=== PATIENT | female | born 1935 | race Caucasian/White ===

== ENCOUNTER 2018-04-15 08:36 | Inpatient (IN) ==
--- NOTE | 2018-04-15 08:48 | Emergency Department Note ---
Disposition Clinical Impression: Atrial fibrillation with RVR, Generalized weakness Disposition: Admitted As Inpatient Condition: Good Referrals: Mikie Arana MD [Primary Care Provider] - Forms: ED Satisfaction Letter Weakness HPI - General Chief complaint: ED Weakness Stated complaint: Trouble walking Time Seen by Provider: 04/15/18 08:42 Source: patient, family, EMS Mode of arrival: EMS Limitations: physical limitation, age Nursing Notes Reviewed: Yes Vital Signs Reviewed: Yes - History of Present Illness HPI Narrative: Patient presents by EMS with complaint of generalized weakness and trouble walking. She states this has onset over the course of a year and that she can no longer do as much work at her house and yard his usual. 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 Because of this 911 was called and she has been brought in for evaluation. Patient states that she feels well. She has not had any type of fall or injury and denies any new pain or physical complaint. She states she has had some chronic intermittent constipation and is still waiting for a referral for evaluation of that. She denies any chest pain, palpitation or shortness of breath. She denies any urinary difficulty but she was treated for urinary tract infection about a month ago. She states she currently has "no trouble" with her urine. She denies fevers or chills. She denies abdominal pain or diarrhea. She denies any cough or congestion. She notes that "they take my vitals every morning" and that "my vitals are good". She denies any change in her medicines. Patient currently is living in her own residence. Pt Subjective Complaint: generalized weakness/fatigue, difficulty ambulating - Related Data Home Medications Medication Instructions Recorded Confirmed Aspirin 81 mg PO DAILY 06/26/15 04/15/18 Multivitamin [Zoo Chews] 1 tab PO DAILY 06/26/15 04/15/18 Potassium Chloride [Klor-Con 10] 20 meq PO DAILY 01/31/17 04/15/18 Cholecalciferol (Vitamin D3) 600 unit PO QAM 10/12/17 04/15/18 [Vitamin D] Donepezil [Aricept] 5 mg PO HS 10/12/17 04/15/18 Rivaroxaban [Xarelto] 20 mg PO DAILY 10/12/17 04/15/18 Ondansetron [Zofran] 4 mg PO Q6HR 03/12/18 04/15/18 ALPRAZolam [Xanax 0.5 MG Tablet] 0.5 tab PO BID 04/15/18 04/15/18 Cran/Vitc/Mannose/Fos/Bromeln 5 ml PO DAILY 04/15/18 04/15/18 [Cystex Cranberry Liquid] Docusate [Colace] 100 mg PO DAILY 04/15/18 04/15/18 Omeprazole [PriLOSEC] 20 mg PO DAILY 04/15/18 04/15/18 Previous Rx's Medication Instructions Recorded Diltiazem CD (24hr) [Cardizem CD] 120 mg PO DAILY #30 cap.er.24h 06/14/17 Ascorbic Acid [Vitamin C] 500 mg PO DAILY #30 tablet.er 07/31/17 Cyanocobalamin (B-12) [Vitamin B12] 1,000 mcg PO DAILY #30 tablet 07/31/17 Ferrous Sulfate 325 mg PO DAILY #30 tablet 07/31/17 Allergies Allergy/AdvReac Type Severity Reaction Status Date / Time cephalexin [From Keflex] Allergy Hives Verified 04/15/18 08:38 ciprofloxacin [From Cipro] AdvReac Hives Verified 04/15/18 08:38 All systems ED: reviewed and negative except as stated. Past Medical History - Past Medical History Attestation: Yes The following information was validated with the patient. Source: patient, old records reviewed, obtained from family, nursing notes reviewed Medical history: Reports: atrial fibrillation, cancer, CVA, dementia, hypertension, kidney stones Surgical history: Reports: breast surgery, cancer surgery, colectomy, orthopedic , other, ureteral stent Psychiatric history: Reports: no psych history MARKETING PROFESSOR history: Reports: no MARKETING PROFESSOR history - Social History Smoking Status: Former smoker Smokeless Tobacco Status: No Alcohol use: Reports: none Drug use: Reports: none Physical Exam - General Limitations: no limitations General appearance: alert, in no apparent distress - Head Head exam: atraumatic, normocephalic, normal inspection - Eye Eye exam: Present: normal appearance, PERRL, EOMI, other (Slight mattering of the left eyelids.) - ENT ENT exam: normal exam, normal oropharynx, mucous membranes moist - Neck Neck exam: Present: normal inspection, full ROM, trachea midline. Absent: tenderness, lymphadenopathy - Chest Chest inspection: Present: normal inspection, symmetric chest wall rise - Respiratory Respiratory exam: Present: normal lung sounds bilaterally. Absent: respiratory distress, wheezes, prolonged expiratory phase - Cardiovascular Cardiovascular exam: Present: tachycardia, irregular rhythm. Absent: JVD - Abdominal Exam Abdominal exam: Present: soft, Non-Tender, normal bowel sounds. Absent: tenderness, distention, guarding, rebound, rigidity - Extremities Exam Extremities exam: Present: normal inspection, full ROM, normal capillary refill. Absent: tenderness, pedal edema - Expanded Lower Extremity Exam Neurovascular/Tendon exam: Present: normal capillary refill. Absent: motor deficit, sensory deficit, tendon deficit Gait: not tested/not observed - Neurological Exam Neurological exam: Present: alert, oriented X3 - Psychiatric Psychiatric exam: Present: normal affect, normal mood. Absent: agitated, anxious - Skin Skin exam: Present: warm, dry, intact, normal color. Absent: diaphoresis, pallor Course Course Narrative: With return of all labs, imaging and EKG, care has been discussed with Dr. Sotelo at 10:47 AM. 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 This likely is secondary to her age fibrillation with RVR. The duration of this rhythm is unclear. Dr. Sotelo has given verbal orders for her observation period patient is currently improved with a heart rate of 84 and a blood pressure of 93/51. Vital Signs Temperature 98.6 F 04/15/18 08:47 Pulse Rate 82 04/15/18 08:47 Respiratory Rate 18 04/15/18 08:47 Blood Pressure 109/80 04/15/18 08:47 O2 Sat by Pulse Oximetry 93 04/15/18 08:47 Temperature 98.6 F 04/15/18 08:47 Pulse Rate 96 04/15/18 10:05 Respiratory Rate 20 04/15/18 10:05 Blood Pressure 101/59 04/15/18 10:05 O2 Sat by Pulse Oximetry 93 04/15/18 10:05 Oxygen Delivery Oxygen Delivery Room Air Weakness - Differential Diagnosis Differential Diagnosis: Likely: anemia, sepsis/infection, dehydration, medication effect, metabolic - Medical Records Medical records reviewed: Yes I reviewed the patient's medical records. - Lab Data Lab results reviewed: Yes I reviewed the patient's lab results. Result diagrams: 04/15/18 09:00 04/15/18 09:00 Lab Results 04/15/18 04/15/18 04/15/18 Range/Units 09:00 09:00 09:00 WBC 17.5 H (4.3-11.1) K/mcL RBC 4.77 (3.82-4.97) M/mcL Hgb 13.9 (11.5-15.4) g/dL Hct 42.3 (35.3-44.9) % MCV 88.7 (83.0-100.0) fL MCH 29.1 (28.0-33.3) pg MCHC 32.9 (31.6-35.5) g/dL RDW 15.1 H (11.5-14.5) % Plt Count 246 (140-400) K/mcL MPV 12.8 H (9.4-12.4) fL Immature Gran % 0.3 (0-4) % Seg Neutrophils % 80.6 % Lymphocytes % 7.3 % Monocytes % 11.3 % Eosinophils % 0.1 % Basophils % 0.4 % Neutrophils # 14.1 H (1.6-8.9) K/mcL Lymphocytes # 1.3 (0.6-4.6) K/mcL Monocytes # 2.0 H (0.0-1.3) K/mcL Eosinophils # 0.0 (0.0-0.6) K/mcL Basophils # 0.1 (0.0-0.2) K/mcL PT (9.4-12.1) Seconds INR Sodium 139 (136-145) mEq/L Potassium 3.9 (3.5-5.1) mEq/L Chloride 106 (98-107) mEq/L Carbon Dioxide 24 (23-29) mEq/L BUN 9 (8-23) mg/dL Creatinine 0.55 L (0.60-1.20) mg/dL Est GFR ( Amer) > 60 (> 60) Est GFR (Non-Af Amer) > 60 (> 60) BUN/Creatinine Ratio 16 (6-26) Glucose 135 H (70-105) mg/dL Calculated Osmolality 289 (280-300) Calcium 9.0 (8.6-10.3) mg/dL Troponin I < 0.03 (< 0.04) ng/mL B-Natriuretic Peptide (Less than 100) pg/mL TSH 2.009 (0.340-5.600) mcIU/mL 04/15/18 04/15/18 Range/Units 09:00 09:00 WBC (4.3-11.1) K/mcL RBC (3.82-4.97) M/mcL Hgb (11.5-15.4) g/dL Hct (35.3-44.9) % MCV (83.0-100.0) fL MCH (28.0-33.3) pg MCHC (31.6-35.5) g/dL RDW (11.5-14.5) % Plt Count (140-400) K/mcL MPV (9.4-12.4) fL Immature Gran % (0-4) % Seg Neutrophils % % Lymphocytes % % Monocytes % % Eosinophils % % Basophils % % Neutrophils # (1.6-8.9) K/mcL Lymphocytes # (0.6-4.6) K/mcL Monocytes # (0.0-1.3) K/mcL Eosinophils # (0.0-0.6) K/mcL Basophils # (0.0-0.2) K/mcL PT 28.4 H (9.4-12.1) Seconds INR 2.5 Sodium (136-145) mEq/L Potassium (3.5-5.1) mEq/L Chloride (98-107) mEq/L Carbon Dioxide (23-29) mEq/L BUN (8-23) mg/dL Creatinine (0.60-1.20) mg/dL Est GFR ( Amer) (> 60) Est GFR (Non-Af Amer) (> 60) BUN/Creatinine Ratio (6-26) Glucose (70-105) mg/dL Calculated Osmolality (280-300) Calcium (8.6-10.3) mg/dL Troponin I (< 0.04) ng/mL B-Natriuretic Peptide 582 H (Less than 100) pg/mL TSH (0.340-5.600) mcIU/mL - Radiology Data Radiology results reviewed: Yes I reviewed the patient's radiology results. Single view chest x-ray is performed. This does not demonstrate evidence for infiltrate, effusion, pneumothorax, foreign body or heart failure. Patient has chronic increased interstitial markings which do not appear significantly changed from previous. The cardiac silhouette is normal. I do not see abnormality to the osseous structures of the chest. This is on my interpretation. Impressions Chest X-Ray 04/15/18 09:24 IMPRESSION: Ground-glass opacification in the right lower lung zone suspected to represent atelectasis. Asymmetric edema or developing pneumonitis considered less likely. D/ / Brandon Knott MD / Brandon Knott MD Interpreting Provider: Brandon Knott MD - EKG Data EKG attestation: Yes I reviewed and interpreted this EKG. EKG shows normal: axis, intervals, QRS complexes, ST-T waves Rate: tachycardia (140) Rhythm: A.Fib Interpretation: no acute changes, nonspecific ST-T wave changes, other (Atrial fibrillation with RVR)
[2018-04-15 09:16] LABS: Basophils # 0.1 K/mcL (0.0-0.2); Basophils % 0.4 %; Eosinophils % 0.1 %; Hematocrit 42.3 % (35.3-44.9); Hemoglobin 13.9 g/dL (11.5-15.4); Immature Granulocytes % 0.3 % (0-4); Lymphocytes # 1.3 K/mcL (0.6-4.6); Lymphocytes % 7.3 %; Mean Corpuscular HGB Conc 32.9 g/dL (31.6-35.5); Mean Corpuscular Hemoglobin 29.1 pg (28.0-33.3); Mean Corpuscular Volume 88.7 fL (83.0-100.0); Mean Platelet Volume 12.8 fL (9.4-12.4); Monocytes % 11.3 %; Neutrophils # 14.1 K/mcL (1.6-8.9); Platelet Count 246 K/mcL (140-400); Red Blood Count 4.77 M/mcL (3.82-4.97); Red Cell Distribution Width 15.1 % (11.5-14.5); Segmented Neutrophils % 80.6 %
[2018-04-15 09:31] LABS: INR 2.5; Prothrombin Time 28.4 Seconds (9.4-12.1)
[2018-04-15 09:40] LABS: BUN/Creatinine Ratio 16 (6-26); Blood Urea Nitrogen 9 mg/dL (8-23); Carbon Dioxide 24 mEq/L (23-29); Chloride 106 mEq/L (98-107); Glucose 135 mg/dL (70-105); Osmolality,Calculated 289 (280-300); Potassium 3.9 mEq/L (3.5-5.1); Sodium 139 mEq/L (136-145); eGFR For African Americans > 60 (> 60); eGFR For Non-African Americans > 60 (> 60)
[2018-04-15 09:43] LABS: Troponin I < 0.03 ng/mL (< 0.04)
[2018-04-15 11:44] LABS: Bilirubin,Urine Negative (Negative); Blood,Urine Moderate (Negative); Clarity,Urine Slightly Cloudy (Clear); Color,Urine Dark Yellow (Yellow); Glucose,Urine (UA) Normal (Normal); Ketones,Urine Negative (Negative); Leukocyte Esterase,Urine Trace (Negative); Nitrite,Urine Positive (Negative); PH,Urine 5.5 pH Units (5.0-8.0); Protein,Urine 100 mg/dL (Neg-Trace); Specific Gravity,Urine 1.025 (1.010-1.025); Urobilinogen,Urine Normal (Normal)
[2018-04-15 11:57] LABS: Bacteria,Urine Many per hpf (None-Few); Granular Casts,Urine Few per lpf (None Seen); Hyaline Casts,Urine Few per lpf (None-Few); Mucus,Urine Few (Few); RBC,Urine 0-3 per hpf (0-3); Squamous Epithelial Cell,Urine Few per lpf (None-Few)
[2018-04-15] MEDS ORDERED: Naloxone 0.4 MG/ML INJ IVP PRN (12:01)
[2018-04-15] MEDS ORDERED: 0.9 % Sodium Chloride 1,000 ML IVC SCH (12:01)
[2018-04-15] MEDS: Ondansetron ODT 4 MG TAB.RAPDIS PO SCH ×2 (13:26→17:56)
--- NOTE | 2018-04-15 17:07 | Internal Med History&Physical ---
Date of Encounter: 04/15/18 Time of Encounter: 16:35 Assessment and Plan (1) Atrial fibrillation with RVR Current visit: Yes Status: Acute Rate now controlled after IV Cardizem given in emergency room. Continue oral Cardizem (2) Right kidney mass Current visit: Yes Status: Acute Will not workup further per patient request. (3) Neutrophilic leukocytosis Current visit: Yes Status: Acute Etiology not obvious. Will give empiric Bactrim and doxycycline with lactobacillus and monitor labs. (4) Dementia Current visit: No Status: Chronic B12 level was low July 2017. Will recheck in a.m. Qualifiers: Dementia type: vascular dementia Dementia behavioral disturbance: without behavioral disturbance Qualified Code(s): F01.50 - Vascular dementia without behavioral disturbance (5) Weakness Current visit: Yes Status: Acute Will order PT and OT evaluation. Internal Medicine - H&P: HPI Chief complaint: Weakness Admitted From: Emergency Dept Plans for Post Hospital Care: Home History of present illness: Ms. Resendez is a 83 year old female who came to emergency room after caregivers reported she had become noticeably weaker in the past 24 hours. She denies pain or dyspnea. She was evaluated in emergency room found to have AF with RVR with ventricular rate approximately 140/m. She was admitted to [facility] floor for ongoing care needs. She is a fair to poor historian because of dementia. Past Med Surg Social Fam HX - Past Medical History Medical history: atrial fibrillation, cancer, CVA, dementia, hypertension, kidney stones Additional medical history: hard of hearing. dysphagia. left hemiplegia. swelling left hand. hypoxia. hx of pneumonia. onychomycosis. afib with rvr Psychiatric history: no psych history - Past Surgical History Surgical History: breast surgery, cancer surgery, colectomy, orthopedic, other, ureteral stent Additional surgical history: Left masectomy. Left leg - Social History Smoking Status: Former smoker Smokeless Tobacco Status: No Alcohol use: none Drug use: none Internal Medicine - H&P: Meds Aspirin 81 mg PO DAILY 06/26/15 [History] Multivitamin [Zoo Chews] 1 tab PO DAILY 06/26/15 [History] Potassium Chloride [Klor-Con 10] 20 meq PO DAILY 01/31/17 [History] Diltiazem CD (24hr) [Cardizem CD] 120 mg PO DAILY #30 cap.er.24h 06/14/17 [Rx] Ascorbic Acid [Vitamin C] 500 mg PO DAILY #30 tablet.er 07/31/17 [Rx] Cyanocobalamin (B-12) [Vitamin B12] 1,000 mcg PO DAILY #30 tablet 07/31/17 [Rx] Ferrous Sulfate 325 mg PO DAILY #30 tablet 07/31/17 [Rx] Cholecalciferol (Vitamin D3) [Vitamin D] 600 unit PO QAM 10/12/17 [History] Donepezil [Aricept] 5 mg PO HS 10/12/17 [History] Rivaroxaban [Xarelto] 20 mg PO DAILY 10/12/17 [History] Ondansetron [Zofran] 4 mg PO Q6HR 03/12/18 [History] ALPRAZolam [Xanax 0.5 MG Tablet] 0.5 tab PO BID 04/15/18 [History] Cran/Vitc/Mannose/Fos/Bromeln [Cystex Cranberry Liquid] 5 ml PO DAILY 04/15/18 [ History] Docusate [Colace] 100 mg PO DAILY 04/15/18 [History] Omeprazole [PriLOSEC] 20 mg PO DAILY 04/15/18 [History] 3 Allergy/AdvReac Type Severity Reaction Status Date / Time cephalexin [From Keflex] Allergy Hives Verified 04/15/18 08:38 ciprofloxacin [From Cipro] AdvReac Hives Verified 04/15/18 08:38 All Systems PM: A 10-system review of systems was performed and is negative for pertinent findings except as documented above in the HPI. Review of systems: Review of systems from July 2017 [facility] hospitalization were reviewed and revised as below area Gen.: Her weight has decreased from approximately 130 pounds December 2013 to 111 pounds on admission now Cardiovascular: She has had previously documented paroxysmal atrial fibrillation and takes Xarelto. She has hypertension but no DE heart failure DVT or pulmonary embolus Respiratory: She smoked from age [age] but has no known chronic lung disease. GI: She had approximately 8-1/2 feet of small and large bowel resection with primary anastomosis many years ago. She has declined colonoscopy for follow-up of colon polyps. There is no known disorder of liver gallbladder or exocrine pancreas : She had CT scan to further evaluate hematuria December 2017. An 11 mm enhancing hypodense lesion was seen in the inferior pole of the right kidney suspicious for renal cell carcinoma. The patient refused further evaluation. No other kidney or bladder disorders are known. Neurologic: She has had multiple strokes with involvement of the right frontal , right parietal, and right cerebellum. She uses a walker at home. She has not had seizures. She has dementia. Endocrine: She has no known diabetes or thyroid disease but has history of dyslipidemia Hematology/oncology: She had left mastectomy in 1993 for breast CA which was apparently curative. She has a right kidney mass as per above with no further workup done due to patient refusal. Psychiatric: She has no known anxiety depression or other mental health issues Musk skeletal: She has history of osteoporosis but does not have significant arthritis or other bone joint or muscle disorders. - Constitutional Vitals: Temp Pulse Resp BP Pulse Ox 98.4 F 79 16 121/66 92 04/15/18 13:00 04/15/18 13:00 04/15/18 13:00 04/15/18 13:00 04/15/18 13:00 Exam: Gen.: She is a well-developed well-nourished female resting comfortably in bed who appears in no acute distress HEENT: Head is atraumatic and normocephalic. Eyes: EOMI. There is no scleral icterus. Mouth: Mucosa is moist. Neck: Supple and nontender. There is no thyromegaly or adenopathy noted. Heart: Irregularly irregular without murmurs or gallops Lungs: No wheezes or crackles are heard. Abdomen: Soft and nontender. No masses or guarding are noted. Extremities: There is no cyanosis edema or clubbing noted. Dorsalis pedis and posterior tibial pulses are trace palpable bilaterally. She has DJD changes of her hands. Neurologic: Mental status: She is talkative but a fair to poor historian. She is rambling in conversation. Cranial nerves: Smile is asymmetric with slight left nasolabial fold flattening. Forehead wrinkles bilaterally. Tongue protrudes midline. EOMI. She is hard of hearing. Motor: There is no pronator drift. Cerebellar: Finger to nose is intact bilaterally. Skin: Warm and dry Internal Med - H&P Results - Labs CBC & Chem 7: 04/15/18 09:00 04/15/18 09:00 Labs: Urine 07/05/18 Range/Units 11:25 Urine Color Dark Yellow (Yellow) Urine Clarity Slightly Cloudy A (Clear) Urine pH 5.5 (5.0-8.0) pH Units Ur Specific [place] 1.025 (1.010-1.025) Urine Protein 100 H (Neg-Trace) mg/dL Urine Glucose (UA) Normal (Normal) mg/dL - VTE Documentation of Mechanical Device: Graduated compression elastic hosiery
[2018-04-15] MEDS: Doxycycline 100 MG CAPSULE PO SCH (21:20)
[2018-04-15] MEDS: Lactobacillus 1 EACH CAP.SPRINK PO SCH (21:20)
[2018-04-15] MEDS: Sulfamethoxazole/Trimeth DS 1 EACH TABLET PO SCH (21:20)
[2018-04-15] MEDS: ALPRAZolam 0.25 MG TABLET PO SCH (21:25)
[2018-04-15] MEDS ORDERED: *HR* Digoxin 0.5 MG/2 ML AMPUL IVP ONE (21:43)
[2018-04-16] MEDS: Ondansetron ODT 4 MG TAB.RAPDIS PO SCH ×5 (00:13→23:27)
[2018-04-16 05:29] LABS: Basophils % 0.3 %; Eosinophils # 0.1 K/mcL (0.0-0.6); Eosinophils % 0.8 %; Hematocrit 40.3 % (35.3-44.9); Hemoglobin 12.9 g/dL (11.5-15.4); Immature Granulocytes % 0.4 % (0-4); Lymphocytes # 1.9 K/mcL (0.6-4.6); Lymphocytes % 12.7 %; Mean Corpuscular Hemoglobin 28.6 pg (28.0-33.3); Mean Corpuscular Volume 89.4 fL (83.0-100.0); Mean Platelet Volume 13.1 fL (9.4-12.4); Monocytes # 1.8 K/mcL (0.0-1.3); Monocytes % 12.2 %; Platelet Count 237 K/mcL (140-400); Red Blood Count 4.51 M/mcL (3.82-4.97); Red Cell Distribution Width 15.1 % (11.5-14.5); Segmented Neutrophils % 73.6 %
[2018-04-16] MEDS: Lactobacillus 1 EACH CAP.SPRINK PO SCH ×2 (08:59→20:48)
[2018-04-16] MEDS: ALPRAZolam 0.25 MG TABLET PO SCH ×2 (08:59→20:53)
[2018-04-16] MEDS: Aspirin 81 MG TAB.CHEW PO SCH (08:59)
[2018-04-16] MEDS: Diltiazem CD (24hr) 120 MG CAPSULE PO SCH (08:59)
[2018-04-16] MEDS: Sulfamethoxazole/Trimeth DS 1 EACH TABLET PO SCH ×2 (09:00→20:52)
[2018-04-16] MEDS: Doxycycline 100 MG CAPSULE PO SCH ×2 (09:00→20:51)
[2018-04-16 09:23] LABS: Ferritin 85 ng/mL (10-120); Iron < 10 mcg/dL (50-170); Transferrin 197 mg/dL (203-362)
--- NOTE | 2018-04-16 09:47 | Internal Med Progress Note ---
Date of Encounter: 04/16/18 Time of Encounter: 09:35 - Assessment and plan (1) Atrial fibrillation with RVR Current Visit: Yes Status: Acute Assessment and plan: April 16. Will give Lanoxin in addition to Cardizem to control ventricular rate. Continue Xarelto. (2) Right kidney mass Current Visit: Yes Status: Acute Assessment and plan: April 16. Will not workup further per patient request. (3) Neutrophilic leukocytosis Current Visit: Yes Status: Acute Assessment and plan: April 16. Etiology not obvious, improved on labs today. Continue Bactrim and doxycycline with lactobacillus. (4) Dementia Current Visit: No Status: Chronic Assessment and plan: april 16. B12 level normal at 333. Qualifiers: Dementia type: vascular dementia Dementia behavioral disturbance: without behavioral disturbance Qualified Code(s): F01.50 - Vascular dementia without behavioral disturbance (5) Weakness Current Visit: Yes Status: Acute Assessment and plan: April 16. PT and OT evaluations have been ordered. (6) Iron deficiency Current Visit: Yes Status: Acute Assessment and plan: April 16. Start ferrous sulfate with vitamin C in a.m. - Subjective Interval history: April 16. She has no new complaints. - Constitutional Vitals: Temp Pulse Resp BP Pulse Ox 99.2 F 103 16 112/64 93 04/16/18 07:17 04/16/18 07:17 04/16/18 07:17 04/16/18 07:17 04/16/18 07:17 Exam: She is resting comfortably in bed and appears in no acute distress. Her affect is overall cheerful. She does not appear to be in significant pain. I reviewed her medications. I discussed pertinent labs with her and her home caregiver at bedside. Internal Medicine: Result - Labs CBC & Chem 7: 04/16/18 04:48 04/15/18 09:00 Labs: Short CBC 04/16/18 Range/Units 04:48 WBC 14.9 H (4.3-11.1) K/mcL Hgb 12.9 (11.5-15.4) g/dL Hct 40.3 (35.3-44.9) % Plt Count 237 (140-400) K/mcL Neutrophils # 11.0 H (1.6-8.9) K/mcL Urine 04/15/18 Range/Units 11:25 Urine Color Dark Yellow (Yellow) Urine Clarity Slightly Cloudy A (Clear) Urine pH 5.5 (5.0-8.0) pH Units Ur Specific [place] 1.025 (1.010-1.025) Urine Protein 100 H (Neg-Trace) mg/dL Urine Glucose (UA) Normal (Normal) mg/dL - ABG Interpretation ABG results: PT/INR, D-dimer PT 28.4 Seconds (9.4-12.1) H 04/15/18 09:00 - VTE Documentation of Mechanical Device: Graduated compression elastic hosiery Consult Discharge Plan - Plan Referrals: Mikie Arana MD [Primary Care Provider] - 1 week
--- NOTE | 2018-04-16 10:05 | Electrocardiograph Report ---
[address] [place], [place] [address] Test Date: 2018-04-15 Pat Name: Felisha Resendez Department: [id number] Room: [facility] Gender: F Entertainment Usher: [id number] : 1935 Requested By: Marcelino Howard Order Number: [id number] Reading MD: Rodolfo Malone Measurements Intervals [place] Rate: 140 P: ME: 0 QRS: 17 QRSD: 74 T: 34 QT: 259 QTc: 341 Interpretive Statements ATRIAL FIBRILLATION WITH RAPID VENTRICULAR RESPONSE NONSPECIFIC ST & T-WAVE ABNORMALITY ABNORMAL RHYTHM ECG Electronically Signed On 04-16-2018 10:03:42 EDT by Rodolfo Malone
[2018-04-16] MEDS: *HR* Digoxin 0.25 MG TABLET PO SCH (10:13)
[2018-04-16] MEDS: *HR* Rivaroxaban 10 MG TABLET PO SCH (18:23)
[2018-04-17] MEDS: Ascorbic Acid 500 MG TABLET PO SCH (05:34)
[2018-04-17] MEDS: Ondansetron ODT 4 MG TAB.RAPDIS PO SCH ×4 (05:49→23:40)
[2018-04-17] MEDS: Aspirin 81 MG TAB.CHEW PO SCH (09:34)
[2018-04-17] MEDS: ALPRAZolam 0.25 MG TABLET PO SCH ×2 (09:35→20:47)
[2018-04-17] MEDS: Sulfamethoxazole/Trimeth DS 1 EACH TABLET PO SCH ×2 (09:37→20:46)
[2018-04-17] MEDS: Diltiazem CD (24hr) 120 MG CAPSULE PO SCH (09:37)
[2018-04-17] MEDS: Doxycycline 100 MG CAPSULE PO SCH ×2 (09:37→20:46)
[2018-04-17] MEDS: Lactobacillus 1 EACH CAP.SPRINK PO SCH ×2 (09:38→20:46)
[2018-04-17] MEDS: *HR* Digoxin 0.25 MG TABLET PO SCH (09:40)
[2018-04-17] MEDS: *HR* Rivaroxaban 10 MG TABLET PO SCH (16:48)
--- NOTE | 2018-04-17 17:09 | Internal Med Progress Note ---
Date of Encounter: 04/17/18 Time of Encounter: 17:00 - Assessment and plan (1) Atrial fibrillation with RVR Current Visit: Yes Status: Acute Assessment and plan: April 16. Will give Lanoxin in addition to Cardizem to control ventricular rate. Continue Xarelto. April 17. Now in NSR. Continue Lanoxin, Cardizem, and Xarelto. (2) Right kidney mass Current Visit: Yes Status: Acute Assessment and plan: April 16. Will not workup further per patient request. (3) Neutrophilic leukocytosis Current Visit: Yes Status: Acute Assessment and plan: April 16. Etiology not obvious, improved on labs today. Continue Bactrim and doxycycline with lactobacillus. April 17. Recheck labs in a.m. (4) Dementia Current Visit: No Status: Chronic Assessment and plan: april 16. B12 level normal at 333. Qualifiers: Dementia type: vascular dementia Dementia behavioral disturbance: without behavioral disturbance Qualified Code(s): F01.50 - Vascular dementia without behavioral disturbance (5) Weakness Current Visit: Yes Status: Acute Assessment and plan: April 16. PT and OT evaluations have been ordered. (6) Iron deficiency Current Visit: Yes Status: Acute Assessment and plan: April 16. Start ferrous sulfate with vitamin C in a.m. (7) Dysphagia as late effect of cerebrovascular accident (CVA) Current Visit: No Status: Chronic Assessment and plan: April 17. Continue ST intervention. - Subjective Interval history: April 16. She has no new complaints. April 17. She has no new complaints. She states she is still coughing. - Constitutional Vitals: Temp Pulse Resp BP Pulse Ox 98.4 F 80 16 121/55 93 04/17/18 14:04/17/18 14:00 04/17/18 14:00 04/17/18 14:04/17/18 14:00 Exam: She is sitting up in bed eating supper. Her affect is bright and cheerful. She had occasional cough during conversation. Telemetry shows normal sinus rhythm 78/m. I reviewed her medications and lab results. Internal Medicine: Result - Labs CBC & Chem 7: 04/16/18 04:48 04/15/18 09:00 - ABG Interpretation ABG results: PT/INR, D-dimer PT 28.4 Seconds (9.4-12.1) H 04/15/18 09:00 - VTE Documentation of Mechanical Device: Graduated compression elastic hosiery Consult Discharge Plan - Plan Referrals: Mikie Arana MD [Primary Care Provider] - 1 week
[2018-04-18] MEDS: Ondansetron ODT 4 MG TAB.RAPDIS PO SCH ×3 (05:09→16:59)
[2018-04-18] MEDS: Ascorbic Acid 500 MG TABLET PO SCH (05:09)
[2018-04-18 06:31] LABS: Basophils # 0.1 K/mcL (0.0-0.2); Basophils % 0.7 %; Eosinophils # 0.2 K/mcL (0.0-0.6); Eosinophils % 2.3 %; Hematocrit 37.8 % (35.3-44.9); Hemoglobin 11.6 g/dL (11.5-15.4); Immature Granulocytes % 0.4 % (0-4); Lymphocytes # 1.4 K/mcL (0.6-4.6); Lymphocytes % 14.3 %; Mean Corpuscular HGB Conc 30.7 g/dL (31.6-35.5); Mean Corpuscular Hemoglobin 28.4 pg (28.0-33.3); Mean Corpuscular Volume 92.6 fL (83.0-100.0); Mean Platelet Volume 12.6 fL (9.4-12.4); Monocytes # 1.3 K/mcL (0.0-1.3); Monocytes % 13.3 %; Neutrophils # 6.9 K/mcL (1.6-8.9); Platelet Count 245 K/mcL (140-400); Red Blood Count 4.08 M/mcL (3.82-4.97); Red Cell Distribution Width 14.7 % (11.5-14.5)
[2018-04-18 06:52] LABS: BUN/Creatinine Ratio 17 (6-26); Blood Urea Nitrogen 10 mg/dL (8-23); Calcium 8.6 mg/dL (8.6-10.3); Carbon Dioxide 29 mEq/L (23-29); Chloride 102 mEq/L (98-107); Glucose 137 mg/dL (70-105); Osmolality,Calculated 287 (280-300); Potassium 4.1 mEq/L (3.5-5.1); Sodium 138 mEq/L (136-145); eGFR For African Americans > 60 (> 60); eGFR For Non-African Americans > 60 (> 60)
[2018-04-18] MEDS: Diltiazem CD (24hr) 120 MG CAPSULE PO SCH (09:05)
[2018-04-18] MEDS: Lactobacillus 1 EACH CAP.SPRINK PO SCH ×2 (09:06→20:34)
[2018-04-18] MEDS: Aspirin 81 MG TAB.CHEW PO SCH (09:10)
[2018-04-18] MEDS: *HR* Digoxin 0.25 MG TABLET PO SCH (09:11)
[2018-04-18] MEDS: Doxycycline 100 MG CAPSULE PO SCH ×2 (09:12→20:34)
[2018-04-18] MEDS: Sulfamethoxazole/Trimeth DS 1 EACH TABLET PO SCH ×2 (09:14→20:34)
[2018-04-18] MEDS: ALPRAZolam 0.25 MG TABLET PO SCH ×2 (09:17→20:35)
--- NOTE | 2018-04-18 10:04 | Internal Med Progress Note ---
Date of Encounter: 04/18/18 Time of Encounter: 09:55 - Assessment and plan (1) Atrial fibrillation with RVR Current Visit: Yes Status: Acute Assessment and plan: April 16. Will give Lanoxin in addition to Cardizem to control ventricular rate. Continue Xarelto. April 17. Now in NSR. Continue Lanoxin, Cardizem, and Xarelto. (2) Right kidney mass Current Visit: Yes Status: Acute Assessment and plan: April 16. Will not workup further per patient request. (3) Neutrophilic leukocytosis Current Visit: Yes Status: Acute Assessment and plan: April 16. Etiology not obvious, improved on labs today. Continue Bactrim and doxycycline with lactobacillus. April 17. Recheck labs in a.m. April 18. Resolved. We will continue antibiotic and probiotic through April 19. (4) Dementia Current Visit: No Status: Chronic Assessment and plan: april 16. B12 level normal at 333. Qualifiers: Dementia type: vascular dementia Dementia behavioral disturbance: without behavioral disturbance Qualified Code(s): F01.50 - Vascular dementia without behavioral disturbance (5) Weakness Current Visit: Yes Status: Acute Assessment and plan: April 16. PT and OT evaluations have been ordered. (6) Iron deficiency Current Visit: Yes Status: Acute Assessment and plan: April 16. Start ferrous sulfate with vitamin C in a.m. (7) Dysphagia as late effect of cerebrovascular accident (CVA) Current Visit: No Status: Chronic Assessment and plan: April 17. Continue ST intervention. - Subjective Interval history: April 16. She has no new complaints. April 17. She has no new complaints. She states she is still coughing. April 18. She has no new complaints - Constitutional Vitals: Temp Pulse Resp BP Pulse Ox 98.1 F 77 16 120/56 95 04/18/18 06:37 04/18/18 08:58 04/18/18 06:37 04/18/18 08:58 04/18/18 08:58 Exam: She is resting comfortably in bed and appears in no acute distress. Her affect is cheerful. Heart is regular with NSR 77/m on telemetry. I reviewed her medications and lab results. Internal Medicine: Result - Labs CBC & Chem 7: 04/18/18 05:55 04/18/18 05:55 Labs: Short CBC 04/18/18 Range/Units 05:55 WBC 10.0 (4.3-11.1) K/mcL Hgb 11.6 (11.5-15.4) g/dL Hct 37.8 (35.3-44.9) % Plt Count 245 (140-400) K/mcL Neutrophils # 6.9 (1.6-8.9) K/mcL BMP 04/18/18 05:55 Sodium 138 Potassium 4.1 Chloride 102 Carbon Dioxide 29 BUN 10 Creatinine 0.60 Glucose 137 H Calcium 8.6 - ABG Interpretation ABG results: PT/INR, D-dimer PT 28.4 Seconds (9.4-12.1) H 04/15/18 09:00 - VTE Documentation of Mechanical Device: Graduated compression elastic hosiery Consult Discharge Plan - Plan Referrals: Mikie Arana MD [Primary Care Provider] - 1 week
[2018-04-18] MEDS: *HR* Rivaroxaban 10 MG TABLET PO SCH (16:59)
[2018-04-19] MEDS: Ondansetron ODT 4 MG TAB.RAPDIS PO SCH ×4 (06:28→17:37)
[2018-04-19] MEDS: Ascorbic Acid 500 MG TABLET PO SCH (06:28)
[2018-04-19] MEDS: *HR* Digoxin 0.25 MG TABLET PO SCH (09:19)
[2018-04-19] MEDS: Aspirin 81 MG TAB.CHEW PO SCH (09:19)
[2018-04-19] MEDS: Doxycycline 100 MG CAPSULE PO SCH (09:20)
[2018-04-19] MEDS: Diltiazem CD (24hr) 120 MG CAPSULE PO SCH (09:20)
[2018-04-19] MEDS: Lactobacillus 1 EACH CAP.SPRINK PO SCH (09:21)
[2018-04-19] MEDS: Sulfamethoxazole/Trimeth DS 1 EACH TABLET PO SCH (09:23)
[2018-04-19] MEDS: ALPRAZolam 0.25 MG TABLET PO SCH ×2 (09:26→21:39)
--- NOTE | 2018-04-19 12:33 | Internal Med Progress Note ---
Date of Encounter: 04/19/18 Time of Encounter: 12:20 - Assessment and plan (1) Atrial fibrillation with RVR Current Visit: Yes Status: Acute Assessment and plan: April 16. Will give Lanoxin in addition to Cardizem to control ventricular rate. Continue Xarelto. April 17. Now in NSR. Continue Lanoxin, Cardizem, and Xarelto. April 19. Now in atrial fib again. Continue Lanoxin and Cardizem and Xarelto. (2) Right kidney mass Current Visit: Yes Status: Acute Assessment and plan: April 16. Will not workup further per patient request. (3) Neutrophilic leukocytosis Current Visit: Yes Status: Acute Assessment and plan: April 16. Etiology not obvious, improved on labs today. Continue Bactrim and doxycycline with lactobacillus. April 17. Recheck labs in a.m. April 18. Resolved. We will continue antibiotic and probiotic through April 19. April 19. We will discontinue antibiotics today. (4) Dementia Current Visit: No Status: Chronic Assessment and plan: april 16. B12 level normal at 333. Qualifiers: Dementia type: vascular dementia Dementia behavioral disturbance: without behavioral disturbance Qualified Code(s): F01.50 - Vascular dementia without behavioral disturbance (5) Weakness Current Visit: Yes Status: Acute Assessment and plan: April 16. PT and OT evaluations have been ordered. (6) Iron deficiency Current Visit: Yes Status: Acute Assessment and plan: April 16. Start ferrous sulfate with vitamin C in a.m. (7) Dysphagia as late effect of cerebrovascular accident (CVA) Current Visit: No Status: Chronic Assessment and plan: April 17. Continue ST intervention. - Subjective Interval history: April 16. She has no new complaints. April 17. She has no new complaints. She states she is still coughing. April 18. She has no new complaints April 19. She has no new complaints. She denies pain or dyspnea. - Constitutional Vitals: Temp Pulse Resp BP Pulse Ox 98.7 F 77 20 119/69 96 04/19/18 07:30 04/19/18 09:17 04/19/18 09:17 04/19/18 09:17 04/19/18 09:17 Exam: She is resting comfortably in bed and appears in no acute distress. Heart is irregularly irregular with rate 88/m. Lungs are clear anteriorly. Extremity show no edema. I reviewed her medications and lab results. Internal Medicine: Result - Labs CBC & Chem 7: 04/18/18 05:55 04/18/18 05:55 - ABG Interpretation ABG results: PT/INR, D-dimer PT 28.4 Seconds (9.4-12.1) H 04/15/18 09:00 - VTE Documentation of Mechanical Device: Graduated compression elastic hosiery Consult Discharge Plan - Plan Referrals: Mikie Arana MD [Primary Care Provider] - 1 week
[2018-04-19] MEDS: *HR* Rivaroxaban 10 MG TABLET PO SCH (17:37)
[2018-04-20] MEDS: Ondansetron ODT 4 MG TAB.RAPDIS PO SCH ×3 (01:08→11:42)
[2018-04-20 06:04] LABS: Basophils # 0.1 K/mcL (0.0-0.2); Basophils % 0.8 %; Eosinophils # 0.3 K/mcL (0.0-0.6); Hematocrit 41.7 % (35.3-44.9); Immature Granulocytes % 0.8 % (0-4); Lymphocytes # 1.7 K/mcL (0.6-4.6); Lymphocytes % 19.8 %; Mean Corpuscular HGB Conc 31.2 g/dL (31.6-35.5); Mean Corpuscular Hemoglobin 28.4 pg (28.0-33.3); Mean Corpuscular Volume 91.2 fL (83.0-100.0); Mean Platelet Volume 12.8 fL (9.4-12.4); Monocytes % 11.9 %; Neutrophils # 5.5 K/mcL (1.6-8.9); Platelet Count 290 K/mcL (140-400); Red Blood Count 4.57 M/mcL (3.82-4.97); Red Cell Distribution Width 14.4 % (11.5-14.5); Segmented Neutrophils % 63.7 %
[2018-04-20] MEDS: Ascorbic Acid 500 MG TABLET PO SCH (06:18)
[2018-04-20 06:35] LABS: BUN/Creatinine Ratio 23 (6-26); Blood Urea Nitrogen 12 mg/dL (8-23); Calcium 9.1 mg/dL (8.6-10.3); Carbon Dioxide 32 mEq/L (23-29); Chloride 101 mEq/L (98-107); Digoxin 1.3 ng/mL (0.8-2.0); Glucose 97 mg/dL (70-105); Osmolality,Calculated 288 (280-300); Potassium 4.3 mEq/L (3.5-5.1); Sodium 139 mEq/L (136-145); eGFR For African Americans > 60 (> 60); eGFR For Non-African Americans > 60 (> 60)
[2018-04-20 08:40] VITALS: BP 120/53
[2018-04-20] MEDS: Diltiazem CD (24hr) 120 MG CAPSULE PO SCH (08:41)
[2018-04-20] MEDS: *HR* Digoxin 0.25 MG TABLET PO SCH (08:42)
[2018-04-20] MEDS: ALPRAZolam 0.25 MG TABLET PO SCH (08:42)
[2018-04-20] MEDS: Aspirin 81 MG TAB.CHEW PO SCH (08:42)
--- NOTE | 2018-04-20 14:28 | Discharge Summary ---
Date of Encounter: 04/20/18 Time of Encounter: 14:18 - Discharge Diagnosis (1) Atrial fibrillation with RVR Priority: Primary Status: Acute (2) Right kidney mass Priority: Secondary Status: Chronic (3) Neutrophilic leukocytosis Priority: Secondary Status: Resolved (4) Dementia Priority: Secondary Status: Chronic Qualifiers: Dementia type: vascular dementia Dementia behavioral disturbance: without behavioral disturbance Qualified Code(s): F01.50 - Vascular dementia without behavioral disturbance (5) Weakness Priority: Secondary Status: Chronic (6) Iron deficiency Priority: Secondary Status: Acute (7) Dysphagia as late effect of cerebrovascular accident (CVA) Priority: Secondary Status: Chronic Hospital course: Ms. Resendez is a 83 year old female who came to emergency room after caregivers reported she had become noticeably weaker in the past 24 hours. She denies pain or dyspnea. She was evaluated in emergency room found to have AF with RVR with ventricular rate approximately 140/m. She was admitted to [facility] floor for ongoing care needs. Initial orders were written by the emergency room physician. I saw her on April 15 and performed the history and physical. She was given IV Cardizem in emergency room. Lanoxin was started and oral Cardizem continued as at home dose. She had intermittent episodes of atrial fibrillation through the remainder of her hospital stay but her rate remained overall controlled. She will continue this regimen in swing bed. She was given Bactrim and doxycycline with lactobacillus empirically for neutrophilic leukocytosis. Etiology was not determined with certainty. WBC and left shift on differential normalized and antibiotics were discontinued on April 19. Physical therapy and occupational therapy evaluations with ongoing intervention were done. She made some improvement but it was felt she would benefit from ongoing therapy in swing bed. Arrangements were complete on April 20 for her to be discharged to swing bed for ongoing care needs. - Time Spent with Patient Total time spent providing and/or coordinating discharge services: - Discharge Medications Home Medications: Aspirin 81 mg PO DAILY 06/26/15 [History] Potassium Chloride [Klor-Con 10] 20 meq PO DAILY 01/31/17 [History] Diltiazem CD (24hr) [Cardizem CD] 120 mg PO DAILY #30 cap.er.24h 06/14/17 [Rx] Ascorbic Acid [Vitamin C] 500 mg PO DAILY #30 tablet.er 07/31/17 [Rx] Cyanocobalamin (B-12) [Vitamin B12] 1,000 mcg PO DAILY #30 tablet 07/31/17 [Rx] Ferrous Sulfate 325 mg PO DAILY #30 tablet 07/31/17 [Rx] Cholecalciferol (Vitamin D3) [Vitamin D3] 600 unit PO QAM 10/12/17 [History] Donepezil [Aricept] 5 mg PO HS 10/12/17 [History] Rivaroxaban [Xarelto] 20 mg PO DAILY 10/12/17 [History] Ondansetron [Zofran] 4 mg PO Q6HR 03/12/18 [History] ALPRAZolam [Xanax 0.5 MG Tablet] 0.5 tab PO BID 04/15/18 [History] Cran/Vitc/Mannose/Fos/Bromeln [Cystex Cranberry Liquid] 5 ml PO DAILY 04/15/18 [ History] Docusate [Colace] 100 mg PO DAILY 04/15/18 [History] Omeprazole [PriLOSEC] 20 mg PO DAILY 04/15/18 [History] Ascorbic Acid [Vitamin C] 500 mg PO 0630 tablet 04/20/18 [Rx] Digoxin [Lanoxin] 0.25 mg PO DAILY tablet 04/20/18 [Rx] Ferrous Sulfate 325 mg PO 0630 tablet 04/20/18 [Rx] Multivitamin [Zoo Chews] 1 tab PO DAILY PRN #0 04/20/18 [Rx] Allergies/Adverse Reactions: 3 Allergy/AdvReac Type Severity Reaction Status Date / Time cephalexin [From Keflex] Allergy Hives Verified 04/15/18 08:38 ciprofloxacin [From Cipro] AdvReac Hives Verified 04/15/18 08:38 Date of admission: 04/16/18 12:36 Primary care physician: Mikie Arana MD - Constitutional Vitals: Temp Pulse Resp BP Pulse Ox 97.7 F 108 16 120/53 93 04/20/18 07:24 04/20/18 08:37 04/20/18 07:24 04/20/18 08:37 04/20/18 08:44 - Patient Status Disposition: Transfer Hospital Swing Bed Condition: Good - Discharge Instructions - Diet and Activity Activity: as per physical therapy Diet: advance to your usual diet - VTE Documentation of Mechanical Device: Graduated compression elastic hosiery
[2018-04-20] MEDS: *HR* Rivaroxaban 10 MG TABLET PO SCH (16:26)
== END 2018-04-20 17:16 | disposition other institution (70) | DRG 309 ==
LOC: INPPIK 08:36 → EMEROOPIK 08:36 → INPPIK 11:28
PROVIDERS: ADMIT Internal Medicine; ATTEND Internal Medicine

== ENCOUNTER 2018-04-20 17:34 | Inpatient (IN) ==
[2018-04-20] MEDS: ALPRAZolam 0.5 MG TABLET PO SCH (20:43)
[2018-04-20] MEDS: Ondansetron ODT 4 MG TAB.RAPDIS PO SCH (20:50)
[2018-04-21] MEDS: Ondansetron ODT 4 MG TAB.RAPDIS PO SCH ×4 (00:33→17:26)
[2018-04-21] MEDS: Ascorbic Acid 500 MG TABLET PO SCH (06:24)
[2018-04-21 06:48] LABS: Basophils # 0.1 K/mcL (0.0-0.2); Basophils % 1.2 %; Eosinophils # 0.2 K/mcL (0.0-0.6); Eosinophils % 2.5 %; Hematocrit 39.6 % (35.3-44.9); Hemoglobin 12.2 g/dL (11.5-15.4); Immature Granulocytes % 0.5 % (0-4); Lymphocytes # 1.5 K/mcL (0.6-4.6); Lymphocytes % 18.9 %; Mean Corpuscular HGB Conc 30.8 g/dL (31.6-35.5); Mean Corpuscular Hemoglobin 28.6 pg (28.0-33.3); Mean Corpuscular Volume 92.7 fL (83.0-100.0); Mean Platelet Volume 12.7 fL (9.4-12.4); Monocytes # 0.9 K/mcL (0.0-1.3); Monocytes % 11.5 %; Neutrophils # 5.1 K/mcL (1.6-8.9); Platelet Count 303 K/mcL (140-400); Red Blood Count 4.27 M/mcL (3.82-4.97); Red Cell Distribution Width 14.4 % (11.5-14.5); Segmented Neutrophils % 65.4 %
[2018-04-21 07:00] LABS: BUN/Creatinine Ratio 34 (6-26); Blood Urea Nitrogen 17 mg/dL (8-23); Calcium 9.1 mg/dL (8.6-10.3); Carbon Dioxide 35 mEq/L (23-29); Chloride 101 mEq/L (98-107); Glucose 102 mg/dL (70-105); Osmolality,Calculated 292 (280-300); Potassium 4.3 mEq/L (3.5-5.1); Sodium 140 mEq/L (136-145); eGFR For African Americans > 60 (> 60); eGFR For Non-African Americans > 60 (> 60)
[2018-04-21 07:03] LABS: Activated Partial Thrombo Time 35.6 Seconds (26.0-36.0); INR 1.7; Prothrombin Time 18.7 Seconds (9.4-12.1)
[2018-04-21] MEDS ORDERED: VITC PO SCH (09:00)
[2018-04-21] MEDS ORDERED: FOS PO SCH (09:00)
[2018-04-21] MEDS ORDERED: MANNOSE PO SCH (09:00)
[2018-04-21] MEDS ORDERED: [UNRECOGNIZED DRUG - OTHER] PO SCH (09:00)
[2018-04-21] MEDS ORDERED: BROMELN PO SCH (09:00)
[2018-04-21] MEDS ORDERED: CRAN PO SCH (09:00)
[2018-04-21] MEDS ORDERED: ASCORBIC ACID 500 MG PO SCH (09:00)
[2018-04-21] MEDS: Diltiazem CD (24hr) 120 MG CAPSULE PO SCH (09:13)
[2018-04-21] MEDS: Multivit/Ca/Min/Fe/FA 1 TAB TABLET PO SCH (09:13)
[2018-04-21] MEDS: ALPRAZolam 0.5 MG TABLET PO SCH ×2 (09:14→22:20)
[2018-04-21] MEDS: *HR* Digoxin 0.25 MG TABLET PO SCH (09:14)
[2018-04-21] MEDS: Cholecalciferol (D-3) 1,000 UNIT TABLET PO SCH (09:14)
[2018-04-21] MEDS: Aspirin 81 MG TAB.CHEW PO SCH (09:14)
[2018-04-21] MEDS: Cyanocobalamin (B-12) 1,000 MCG TABLET PO SCH (09:14)
[2018-04-21] MEDS: *HR* Rivaroxaban 10 MG TABLET PO SCH (17:26)
[2018-04-22] MEDS: Ondansetron ODT 4 MG TAB.RAPDIS PO SCH ×4 (02:13→18:51)
[2018-04-22] MEDS: Ascorbic Acid 500 MG TABLET PO SCH (06:55)
[2018-04-22] MEDS: Cyanocobalamin (B-12) 1,000 MCG TABLET PO SCH (08:39)
[2018-04-22] MEDS: Aspirin 81 MG TAB.CHEW PO SCH (08:39)
[2018-04-22] MEDS: ALPRAZolam 0.5 MG TABLET PO SCH ×2 (08:39→21:20)
[2018-04-22] MEDS: Multivit/Ca/Min/Fe/FA 1 TAB TABLET PO SCH (08:39)
[2018-04-22] MEDS: Cholecalciferol (D-3) 1,000 UNIT TABLET PO SCH (08:39)
[2018-04-22] MEDS: *HR* Digoxin 0.25 MG TABLET PO SCH (08:40)
[2018-04-22] MEDS: Diltiazem CD (24hr) 120 MG CAPSULE PO SCH (08:40)
--- NOTE | 2018-04-22 14:45 | Internal Med Progress Note ---
Date of Encounter: 04/22/18 Time of Encounter: 14:30 - Assessment and plan (1) Weakness Current Visit: No Status: Chronic Assessment and plan: April 22. Continue therapy intervention. (2) Dementia Current Visit: No Status: Chronic Assessment and plan: April 22. Workup negative for reversible causes. Qualifiers: Dementia type: vascular dementia Dementia behavioral disturbance: without behavioral disturbance Qualified Code(s): F01.50 - Vascular dementia without behavioral disturbance (3) Right kidney mass Current Visit: No Status: Chronic Assessment and plan: April 22. She has declined further intervention or treatment. (4) Iron deficiency Current Visit: No Status: Acute Assessment and plan: April 22. Continue ferrous sulfate with vitamin C. - Subjective Interval history: April 22. She was hospitalized in acute-care April 15- after presenting with weakness. She had AF with RVR which responded to diltiazem. Satisfactory ventricular response rate was maintained on home dose of oral diltiazem. Neutrophilic leukocytosis responded to Bactrim and doxycycline without etiology of origin determined. She progressed satisfactorily with PT and OT but it was felt she would benefit from swing bed stay for ongoing therapy. She has no new complaints today and feels better. - Constitutional Vitals: Temp Pulse Resp BP Pulse Ox 97.7 F 67 16 127/72 98 04/22/18 07:15 04/22/18 07:15 04/22/18 07:15 04/22/18 07:15 04/22/18 07:15 Exam: She is resting comfortably in bed and appears in no acute distress. Her affect is bright and cheerful. She is hard of hearing. Heart is regular with occasional ectopic beat. Lungs are clear anteriorly. I reviewed her medications and lab results. Internal Medicine: Result - Labs CBC & Chem 7: 04/21/18 06:00 04/21/18 06:00 - ABG Interpretation ABG results: PT/INR, D-dimer PT 18.7 Seconds (9.4-12.1) H 04/21/18 06:00 - VTE Documentation of Mechanical Device: Graduated compression elastic hosiery Consult Discharge Plan - Plan Referrals: Mikie Arana MD [Primary Care Provider] - 1 week
[2018-04-22] MEDS: *HR* Rivaroxaban 10 MG TABLET PO SCH (18:51)
[2018-04-23] MEDS: Ondansetron ODT 4 MG TAB.RAPDIS PO SCH ×4 (02:23→18:41)
[2018-04-23] MEDS: Ascorbic Acid 500 MG TABLET PO SCH (06:58)
[2018-04-23] MEDS: Diltiazem CD (24hr) 120 MG CAPSULE PO SCH (10:28)
[2018-04-23] MEDS: Multivit/Ca/Min/Fe/FA 1 TAB TABLET PO SCH (10:28)
[2018-04-23] MEDS: Cholecalciferol (D-3) 1,000 UNIT TABLET PO SCH (10:28)
[2018-04-23] MEDS: *HR* Digoxin 0.25 MG TABLET PO SCH (10:28)
[2018-04-23] MEDS: Aspirin 81 MG TAB.CHEW PO SCH (10:29)
[2018-04-23] MEDS: Cyanocobalamin (B-12) 1,000 MCG TABLET PO SCH (10:29)
[2018-04-23] MEDS: ALPRAZolam 0.5 MG TABLET PO SCH ×2 (10:29→20:18)
[2018-04-23] MEDS: *HR* Rivaroxaban 10 MG TABLET PO SCH (18:41)
[2018-04-24] MEDS: Ondansetron ODT 4 MG TAB.RAPDIS PO SCH ×4 (00:34→16:48)
[2018-04-24] MEDS: Ascorbic Acid 500 MG TABLET PO SCH (06:32)
[2018-04-24] MEDS: Cyanocobalamin (B-12) 1,000 MCG TABLET PO SCH ×2 (09:47→16:44)
[2018-04-24] MEDS: Multivit/Ca/Min/Fe/FA 1 TAB TABLET PO SCH ×2 (09:47→16:46)
[2018-04-24] MEDS: *HR* Digoxin 0.25 MG TABLET PO SCH ×2 (09:47→16:45)
[2018-04-24] MEDS: Aspirin 81 MG TAB.CHEW PO SCH ×2 (09:47→16:44)
[2018-04-24] MEDS: Diltiazem CD (24hr) 120 MG CAPSULE PO SCH ×2 (09:47→16:44)
[2018-04-24] MEDS: Cholecalciferol (D-3) 1,000 UNIT TABLET PO SCH ×2 (09:48→16:44)
[2018-04-24] MEDS: ALPRAZolam 0.5 MG TABLET PO SCH ×3 (09:48→20:41)
[2018-04-24] MEDS: *HR* Rivaroxaban 10 MG TABLET PO SCH (16:48)
[2018-04-24] MEDS: dilTIAZem HCl 60 MG TABLET PO SCH (20:41)
[2018-04-25] MEDS: Ondansetron ODT 4 MG TAB.RAPDIS PO SCH ×4 (00:10→16:54)
[2018-04-25] MEDS: Ascorbic Acid 500 MG TABLET PO SCH (06:25)
[2018-04-25] MEDS: Ferrous Sulfate Oral Soln 300 MG/5 ML UDC PO SCH (06:26)
[2018-04-25] MEDS: Digoxin Oral Liquid 125 MCG/2.5 ML ORAL.SYG PO SCH (09:19)
[2018-04-25] MEDS: Docusate Oral Soln 100 MG/10 ML UDC PO SCH (09:19)
[2018-04-25] MEDS: Cyanocobalamin (B-12) 1,000 MCG TABLET PO SCH (09:20)
[2018-04-25] MEDS: dilTIAZem HCl 60 MG TABLET PO SCH ×2 (09:20→21:13)
[2018-04-25] MEDS: Aspirin 81 MG TAB.CHEW PO SCH ×2 (09:20→16:52)
[2018-04-25] MEDS: Cholecalciferol (D-3) 1,000 UNIT TABLET PO SCH (09:20)
[2018-04-25] MEDS: Potassium Chloride Elixir 20 MEQ/15 ML UDC PO SCH (09:20)
[2018-04-25] MEDS: Multivitamin Liquid 15 ML UDC PO SCH (09:20)
[2018-04-25] MEDS: ALPRAZolam 0.5 MG TABLET PO SCH ×2 (09:20→21:12)
--- NOTE | 2018-04-25 13:04 | Internal Med Progress Note ---
Date of Encounter: 04/25/18 Time of Encounter: 12:55 - Assessment and plan (1) Weakness Current Visit: No Status: Chronic Assessment and plan: April 22. Continue therapy intervention. April 25. Anticipate discharge home in a few days. (2) Dementia Current Visit: No Status: Chronic Assessment and plan: April 22. Workup negative for reversible causes. Qualifiers: Dementia type: vascular dementia Dementia behavioral disturbance: without behavioral disturbance Qualified Code(s): F01.50 - Vascular dementia without behavioral disturbance (3) Right kidney mass Current Visit: No Status: Chronic Assessment and plan: April 22. She has declined further intervention or treatment. (4) Iron deficiency Current Visit: No Status: Acute Assessment and plan: April 22. Continue ferrous sulfate with vitamin C. - Subjective Interval history: April 22. She was hospitalized in acute-care April 15- after presenting with weakness. She had AF with RVR which responded to diltiazem. Satisfactory ventricular response rate was maintained on home dose of oral diltiazem. Neutrophilic leukocytosis responded to Bactrim and doxycycline without etiology of origin determined. She progressed satisfactorily with PT and OT but it was felt she would benefit from swing bed stay for ongoing therapy. She has no new complaints today and feels better. April 25. She has no new complaints - Constitutional Vitals: Temp Pulse Resp BP Pulse Ox 98.0 F 58 14 119/60 96 04/25/18 06:57 04/25/18 06:57 04/25/18 06:57 04/25/18 06:57 04/25/18 06:57 Exam: She is sitting in a chair at bedside resting comfortably. She denies pain or dyspnea. Heart is irregularly irregular with rate 100/m. Lungs are clear. Her affect is very bright and cheerful. I reviewed her medications and lab results. Internal Medicine: Result - Labs CBC & Chem 7: 04/21/18 06:00 04/21/18 06:00 - ABG Interpretation ABG results: PT/INR, D-dimer PT 18.7 Seconds (9.4-12.1) H 04/21/18 06:00 - VTE Documentation of Mechanical Device: Graduated compression elastic hosiery Consult Discharge Plan - Plan Referrals: Mikie Arana MD [Primary Care Provider] - 1 week
[2018-04-25] MEDS: *HR* Rivaroxaban 10 MG TABLET PO SCH (16:54)
[2018-04-26] MEDS: Ondansetron ODT 4 MG TAB.RAPDIS PO SCH ×4 (01:09→17:32)
[2018-04-26] MEDS: Ferrous Sulfate Oral Soln 300 MG/5 ML UDC PO SCH (06:46)
[2018-04-26] MEDS: Ascorbic Acid 500 MG TABLET PO SCH (06:46)
[2018-04-26] MEDS: Docusate Oral Soln 100 MG/10 ML UDC PO SCH (09:21)
[2018-04-26] MEDS: Digoxin Oral Liquid 125 MCG/2.5 ML ORAL.SYG PO SCH (09:22)
[2018-04-26] MEDS: Potassium Chloride Elixir 20 MEQ/15 ML UDC PO SCH (09:22)
[2018-04-26] MEDS: Cholecalciferol (D-3) 1,000 UNIT TABLET PO SCH (09:23)
[2018-04-26] MEDS: ALPRAZolam 0.5 MG TABLET PO SCH ×2 (09:23→21:45)
[2018-04-26] MEDS: dilTIAZem HCl 60 MG TABLET PO SCH ×2 (09:23→21:45)
[2018-04-26] MEDS: Cyanocobalamin (B-12) 1,000 MCG TABLET PO SCH (09:23)
[2018-04-26] MEDS: Multivitamin Liquid 15 ML UDC PO SCH (09:23)
[2018-04-26] MEDS: *HR* Rivaroxaban 10 MG TABLET PO SCH (17:31)
[2018-04-27] MEDS: Ondansetron ODT 4 MG TAB.RAPDIS PO SCH ×4 (00:50→17:18)
[2018-04-27] MEDS: Ascorbic Acid 500 MG TABLET PO SCH (06:52)
[2018-04-27] MEDS: Ferrous Sulfate Oral Soln 300 MG/5 ML UDC PO SCH (06:52)
[2018-04-27] MEDS: Cyanocobalamin (B-12) 1,000 MCG TABLET PO SCH (08:26)
[2018-04-27] MEDS: dilTIAZem HCl 60 MG TABLET PO SCH ×2 (08:26→21:09)
[2018-04-27] MEDS: Potassium Chloride Elixir 20 MEQ/15 ML UDC PO SCH (08:26)
[2018-04-27] MEDS: Cholecalciferol (D-3) 1,000 UNIT TABLET PO SCH (08:26)
[2018-04-27] MEDS: ALPRAZolam 0.25 MG TABLET PO SCH ×2 (08:27→21:09)
[2018-04-27] MEDS: Docusate Oral Soln 100 MG/10 ML UDC PO SCH (13:03)
[2018-04-27] MEDS: *HR* Digoxin 0.25 MG TABLET PO SCH (13:03)
[2018-04-27] MEDS: Multivitamin Liquid 15 ML UDC PO SCH (13:03)
[2018-04-27] MEDS: Aspirin 81 MG TAB.CHEW PO SCH (13:04)
[2018-04-27] MEDS: Digoxin Oral Liquid 125 MCG/2.5 ML ORAL.SYG PO SCH (13:05)
[2018-04-27] MEDS: *HR* Rivaroxaban 10 MG TABLET PO SCH (17:18)
[2018-04-28] MEDS: Ondansetron ODT 4 MG TAB.RAPDIS PO SCH ×4 (01:15→17:52)
[2018-04-28] MEDS: Ferrous Sulfate Oral Soln 300 MG/5 ML UDC PO SCH (06:18)
[2018-04-28] MEDS: Ascorbic Acid 500 MG TABLET PO SCH (06:18)
[2018-04-28] MEDS: Multivitamin Liquid 15 ML UDC PO SCH (09:45)
[2018-04-28] MEDS: Docusate Oral Soln 100 MG/10 ML UDC PO SCH (09:45)
[2018-04-28] MEDS: Potassium Chloride Elixir 20 MEQ/15 ML UDC PO SCH (09:45)
[2018-04-28] MEDS: Cyanocobalamin (B-12) 1,000 MCG TABLET PO SCH (09:46)
[2018-04-28] MEDS: ALPRAZolam 0.25 MG TABLET PO SCH ×2 (09:46→21:31)
[2018-04-28] MEDS: Cholecalciferol (D-3) 1,000 UNIT TABLET PO SCH (09:46)
[2018-04-28] MEDS: dilTIAZem HCl 60 MG TABLET PO SCH ×2 (09:46→21:31)
[2018-04-28] MEDS: *HR* Digoxin 0.25 MG TABLET PO SCH (09:46)
--- NOTE | 2018-04-28 16:21 | Internal Med Progress Note ---
Date of Encounter: 04/28/18 Time of Encounter: 14:00 - Assessment and plan (1) Weakness Current Visit: No Status: Chronic Assessment and plan: April 22. Continue therapy intervention. April 25. Anticipate discharge home in a few days. April 28. Anticipate discharge home tomorrow. (2) Dementia Current Visit: No Status: Chronic Assessment and plan: April 22. Workup negative for reversible causes. Qualifiers: Dementia type: vascular dementia Dementia behavioral disturbance: without behavioral disturbance Qualified Code(s): F01.50 - Vascular dementia without behavioral disturbance (3) Right kidney mass Current Visit: No Status: Chronic Assessment and plan: April 22. She has declined further intervention or treatment. (4) Iron deficiency Current Visit: No Status: Acute Assessment and plan: April 22. Continue ferrous sulfate with vitamin C. - Subjective Interval history: April 22. She was hospitalized in acute-care April 15- after presenting with weakness. She had AF with RVR which responded to diltiazem. Satisfactory ventricular response rate was maintained on home dose of oral diltiazem. Neutrophilic leukocytosis responded to Bactrim and doxycycline without etiology of origin determined. She progressed satisfactorily with PT and OT but it was felt she would benefit from swing bed stay for ongoing therapy. She has no new complaints today and feels better. April 25. She has no new complaints April 28. She is sleeping. - Constitutional Vitals: Temp Pulse Resp BP Pulse Ox 98.1 F 64 14 125/65 95 04/28/18 06:41 04/28/18 06:41 04/28/18 06:41 04/28/18 06:41 04/28/18 06:41 Exam: She is resting comfortably in bed and appears in no acute distress. She ablated briefly in the hallway earlier today appeared in no acute distress. I reviewed her medications and lab results. Internal Medicine: Result - Labs CBC & Chem 7: 04/21/18 06:00 04/21/18 06:00 - ABG Interpretation ABG results: PT/INR, D-dimer PT 18.7 Seconds (9.4-12.1) H 04/21/18 06:00 - VTE Documentation of Mechanical Device: Graduated compression elastic hosiery Consult Discharge Plan - Plan Referrals: Mikie Arana MD [Primary Care Provider] - 1 week
[2018-04-28] MEDS: *HR* Rivaroxaban 10 MG TABLET PO SCH (17:51)
[2018-04-29] MEDS: Ondansetron ODT 4 MG TAB.RAPDIS PO SCH ×3 (00:36→11:07)
[2018-04-29] MEDS: Ascorbic Acid 500 MG TABLET PO SCH (05:33)
[2018-04-29] MEDS: Ferrous Sulfate Oral Soln 300 MG/5 ML UDC PO SCH (05:34)
[2018-04-29 06:47] VITALS: BP 141/60
[2018-04-29] MEDS ORDERED: Aspirin 81 MG TAB.CHEW PO SCH (09:00)
[2018-04-29] MEDS ORDERED: Digoxin Oral Liquid 125 MCG/2.5 ML ORAL.SYG PO SCH (09:00)
--- NOTE | 2018-04-29 10:57 | Discharge Summary ---
Date of Encounter: 04/29/18 Time of Encounter: 10:15 - Discharge Diagnosis (1) Weakness Priority: Primary Status: Chronic (2) Dementia Priority: Secondary Status: Chronic Qualifiers: Dementia type: vascular dementia Dementia behavioral disturbance: without behavioral disturbance Qualified Code(s): F01.50 - Vascular dementia without behavioral disturbance (3) Right kidney mass Priority: Secondary Status: Chronic (4) Iron deficiency Priority: Secondary Status: Acute Hospital course: Ms. Resendez is a 83 year old female was hospitalized in acute-care April 15 after presenting with weakness. She had AF with RVR which responded to diltiazem. Satisfactory ventricular response rate was maintained on home dose of oral diltiazem with addition of Lanoxin. Neutrophilic leukocytosis responded to Bactrim and doxycycline without etiology of origin determined. She progressed satisfactorily with PT and OT but it was felt she would benefit from swing bed stay for ongoing therapy. She continued with physical therapy and occupational therapy during swing bed stay. On April 29 she was stable for discharge home. She will have home health services ordered. She will follow with her PCP Dr. Arana within 1 week. Room air oximetry will be checked on 6 minute walk prior to discharge. - Time Spent with Patient Total time spent providing and/or coordinating discharge services: - Discharge Medications Prescriptions: Ascorbic Acid [Vitamin C] 500 mg PO 0630 #30 tablet Digoxin [Lanoxin] 0.25 mg PO DAILY #30 tablet Ferrous Sulfate 325 mg PO DAILY #30 tablet Home Medications: Potassium Chloride [Klor-Con 10] 20 meq PO DAILY 01/31/17 [History] Diltiazem CD (24hr) [Cardizem CD] 120 mg PO DAILY #30 cap.er.24h 06/14/17 [Rx] Ascorbic Acid [Vitamin C] 500 mg PO DAILY #30 tablet.er 07/31/17 [Rx] Cyanocobalamin (B-12) [Vitamin B12] 1,000 mcg PO DAILY #30 tablet 07/31/17 [Rx] Ferrous Sulfate 325 mg PO DAILY #30 tablet 07/31/17 [Rx] Cholecalciferol (Vitamin D3) [Vitamin D3] 600 unit PO QAM 10/12/17 [History] Donepezil [Aricept] 5 mg PO HS 10/12/17 [History] Rivaroxaban [Xarelto] 20 mg PO DAILY 10/12/17 [History] Ondansetron [Zofran] 4 mg PO Q6HR 03/12/18 [History] Cran/Vitc/Mannose/Fos/Bromeln [Cystex Cranberry Liquid] 5 ml PO DAILY 04/15/18 [ History] Docusate [Colace] 100 mg PO DAILY 04/15/18 [History] Multivitamin [Zoo Chews] 1 tab PO DAILY PRN #0 04/20/18 [Rx] ALPRAZolam [Xanax 0.5 MG Tablet] 0.25 tab PO BID 30 Days #30 04/29/18 [Rx] Ascorbic Acid [Vitamin C] 500 mg PO 0630 #30 tablet 04/29/18 [Rx] Aspirin 81 mg PO Q48H #0 04/29/18 [Rx] Digoxin [Lanoxin] 0.25 mg PO DAILY #30 tablet 04/29/18 [Rx] Ferrous Sulfate 325 mg PO DAILY #30 tablet 04/29/18 [Rx] Omeprazole [PriLOSEC] 20 mg PO DAILY PRN #0 04/29/18 [Rx] Allergies/Adverse Reactions: 3 Allergy/AdvReac Type Severity Reaction Status Date / Time cephalexin [From Keflex] Allergy Hives Verified 04/15/18 08:38 ciprofloxacin [From Cipro] AdvReac Hives Verified 04/15/18 08:38 Date of admission: 04/20/18 17:43 Primary care physician: Mikie Arana MD Consults: 04/20/18 17:56 Consult to Occupational Therapy [CONS] Routine Comment: Evaluate, Plan and Implement Plan of Care Reason for Consult: Evaluate, Plan and Implement Plan of Care Does patient have active BEDREST order?: No Is patient medically & hemodynamically stable?: Yes Patient assessed for mobility or mobilized this visit?: Yes Consult to Physical Therapy [CONS] Routine Comment: Evaluate, Plan and Implemet Plan of Care Reason for Consult: Evaluate, Plan and Implement Plan of Care Does patient have active BEDREST order?: No Is patient medically & hemodynamically stable?: Yes Patient assessed for mobility or mobilized this visit?: Yes Consult to Oncology Specialist [CONS] Routine Reason for SW Consult: Discharge Planning 04/27/18 10:59 Consult to Speech Therapy [CONS] Routine Comment: Evaluate, develop and implement POC Reason for Consult: Cognitive eval, status post CVAs Call Completed: No - Constitutional Vitals: Temp Pulse Resp BP Pulse Ox 97.8 F 63 12 141/60 90 04/29/18 06:40 04/29/18 06:40 04/29/18 06:40 04/29/18 06:40 04/29/18 06:40 - Patient Status Disposition: Home Health Service - Discharge Instructions Follow Up With: Mikie Arana MD [Primary Care Provider] - 1 week - Diet and Activity Activity: as per physical therapy Diet: advance to your usual diet - VTE Documentation of Mechanical Device: Graduated compression elastic hosiery
[2018-04-29] MEDS: Potassium Chloride Elixir 20 MEQ/15 ML UDC PO SCH (11:03)
[2018-04-29] MEDS: Multivitamin Liquid 15 ML UDC PO SCH (11:05)
[2018-04-29] MEDS: Cholecalciferol (D-3) 1,000 UNIT TABLET PO SCH (11:06)
[2018-04-29] MEDS: ALPRAZolam 0.25 MG TABLET PO SCH (11:06)
[2018-04-29] MEDS: Cyanocobalamin (B-12) 1,000 MCG TABLET PO SCH (11:06)
[2018-04-29] MEDS: dilTIAZem HCl 60 MG TABLET PO SCH (11:07)
[2018-04-29] MEDS: Docusate Oral Soln 100 MG/10 ML UDC PO SCH (11:26)
--- NOTE | 2018-04-29 12:18 | Physician Discharge Referral ---
Home Health/Hosp Referral Info Transfer to: Home Health Attending Provider: Deepak Provider in Charge Post Discharge: PCP (Yasmeen) - Diagnosis (1) Weakness Priority: Primary Status: Chronic (2) Dementia Priority: Secondary Status: Chronic (3) Right kidney mass Priority: Secondary Status: Chronic (4) Iron deficiency Priority: Secondary Status: Acute (5) Atrial fibrillation Priority: Secondary Status: Chronic - Respiratory Orders Smoking Cessation: Smoking cessation has been advised. For more information, call the [place] Tobacco Quit Line at 3-089-FENZ-NOW. - Diet/Nutrition Diet/Nutrition Orders: Mechanical Soft - Activity Activity Orders: Walker - Services Needed Following services are medically necessary services: Nursing, Home Health Aide, Physical Therapy, Occupational Therapy - Transfer Medications Prescriptions: Ascorbic Acid [Vitamin C] 500 mg PO 0630 #30 tablet Digoxin [Lanoxin] 0.25 mg PO DAILY #30 tablet Ferrous Sulfate 325 mg PO DAILY #30 tablet Home Medications: Potassium Chloride [Klor-Con 10] 20 meq PO DAILY 01/31/17 [History] Diltiazem CD (24hr) [Cardizem CD] 120 mg PO DAILY #30 cap.er.24h 06/14/17 [Rx] Ascorbic Acid [Vitamin C] 500 mg PO DAILY #30 tablet.er 07/31/17 [Rx] Cyanocobalamin (B-12) [Vitamin B12] 1,000 mcg PO DAILY #30 tablet 07/31/17 [Rx] Ferrous Sulfate 325 mg PO DAILY #30 tablet 07/31/17 [Rx] Cholecalciferol (Vitamin D3) [Vitamin D3] 600 unit PO QAM 10/12/17 [History] Donepezil [Aricept] 5 mg PO HS 10/12/17 [History] Rivaroxaban [Xarelto] 20 mg PO DAILY 10/12/17 [History] Ondansetron [Zofran] 4 mg PO Q6HR 03/12/18 [History] Cran/Vitc/Mannose/Fos/Bromeln [Cystex Cranberry Liquid] 5 ml PO DAILY 04/15/18 [ History] Docusate [Colace] 100 mg PO DAILY 04/15/18 [History] Multivitamin [Zoo Chews] 1 tab PO DAILY PRN #0 04/20/18 [Rx] ALPRAZolam [Xanax 0.5 MG Tablet] 0.25 tab PO BID 30 Days #30 04/29/18 [Rx] Ascorbic Acid [Vitamin C] 500 mg PO 0630 #30 tablet 04/29/18 [Rx] Aspirin 81 mg PO Q48H #0 04/29/18 [Rx] Digoxin [Lanoxin] 0.25 mg PO DAILY #30 tablet 04/29/18 [Rx] Ferrous Sulfate 325 mg PO DAILY #30 tablet 04/29/18 [Rx] Omeprazole [PriLOSEC] 20 mg PO DAILY PRN #0 04/29/18 [Rx] Allergies/Adverse Reactions: 3 Allergy/AdvReac Type Severity Reaction Status Date / Time cephalexin [From Keflex] Allergy Hives Verified 04/15/18 08:38 ciprofloxacin [From Cipro] AdvReac Hives Verified 04/15/18 08:38 Certification: Further, I certify that my clinical findings support that this patient is homebound (i.e. absences from home require considerable and taxing effort and are for medical reasons or temple services or infrequently or short duration when for other reasons) because: Homebound Reason: Leaving home requires considerable and taxing effort due to condition (Marked debility, kidney mass, dementia) Attestation: My signature below is to certify that this patient is under my care and that I, or nurse practitioner, or a physician's access services assistant working with me, has a face-to -face encounter with this patient.
== END 2018-04-29 13:09 | disposition home health service (06) | DRG 946 ==
LOC: INPPIK 17:43
PROVIDERS: ADMIT Internal Medicine; ATTEND Internal Medicine

== ENCOUNTER 2018-07-29 00:28 | Observation (INO) ==
--- NOTE | 2018-07-29 00:53 | Emergency Department Note ---
Disposition Clinical Impression: Lower gastrointestinal hemorrhage Disposition: Home, Self-Care Condition: Fair GI Bleed HPI - General Chief complaint: ED GI Bleed Stated complaint: rectal bleeding Time Seen by Provider: 07/29/18 00:28 Source: patient, EMS Mode of arrival: EMS Limitations: no limitations Nursing Notes Reviewed: Yes Vital Signs Reviewed: Yes - History of Present Illness HPI Narrative: Elderly female who lives at home alone with a nurse's aide patient apparently squad was dispatched for shortness of breath but upon arrival patient's complaint was rectal bleeding she says that she has a history of hemorrhoids but the patient has dementia and she only remembers things from moment to moment she does not have a long-term memory with conversation at this time. As any blurred vision double vision loss vision she denies any chest pain or chest pressure she denies any shortness of breath patient states though there was blood everywhere in the toilet at the house she denies fever chills joint aches rash lesions cough cold of flulike symptoms she does have generalized weakness she denies nu mbness tingling weakness recently gain weight loss anything that makes this better nothing makes it worse patient states pains 4-5 out of 10 Pt Subjective Complaint: gross bloody stools Onset (ago): unknown Consistency: constant Severity: moderate Improves with: nothing Worsens with: bowel movement Context: hemorrhoids (?) Associated symptoms: Reports: abdominal pain. Denies: nausea, vomiting, ep istaxis, fever, chills, headaches, loss of appetite, malaise, easy bruising, rash, other bleeding source, shortness of breath, syncope/near-syncope, weakness Treatments Prior to Arrival: none - Related Data Home Medications Medication Instructions Recorded Confirmed RX: Potassium Chloride [Klor-Con 20 meq PO DAILY 01/31/17 07/29/18 10] RX: Cholecalciferol (Vitamin D3) 600 unit PO QAM 10/12/17 07/29/18 [Vitamin D3] RX: Donepezil [Aricept] 5 mg PO HS 10/12/17 07/29/18 RX: Ondansetron [Zofran] 4 mg PO Q6HR 03/12/18 07/29/18 RX: Cran/Vitc/Mannose/Fos/Bromeln 5 ml PO DAILY 04/15/18 07/29/18 [Cystex Cranberry Liquid] RX: Docusate [Colace] 100 mg PO DAILY 04/15/18 07/29/18 Previous Rx's Medication Instructions Recorded RX: Diltiazem CD (24hr) [Cardizem 120 mg PO DAILY #30 cap.er.24h 06/14/17 CD] RX: Ascorbic Acid [Vitamin C] 500 mg PO DAILY #30 tablet.er 07/31/17 RX: Cyanocobalamin (B-12) [Vitamin 1,000 mcg PO DAILY #30 tablet 07/31/17 B12] RX: Ferrous Sulfate 325 mg PO DAILY #30 tablet 07/31/17 RX: Multivitamin [Zoo Chews] 1 tab PO DAILY PRN #0 04/20/18 RX: ALPRAZolam [Xanax 0.5 MG 0.25 tab PO BID 30 Days #30 04/29/18 Tablet] RX: Ascorbic Acid [Vitamin C] 500 mg PO 0630 #30 tablet 04/29/18 RX: Aspirin 81 mg PO Q48H #0 04/29/18 RX: Digoxin [Lanoxin] 0.25 mg PO DAILY #30 tablet 04/29/18 RX: Ferrous Sulfate 325 mg PO DAILY #30 tablet 04/29/18 RX: Omeprazole [PriLOSEC] 20 mg PO DAILY PRN #0 04/29/18 Apixaban [Eliquis] 5 mg PO BID #60 tablet 07/30/18 RX: Atorvastatin [Lipitor] 10 mg PO HS tablet 07/30/18 RX: Nitrofurantoin (BID) [Macrobid] 100 mg PO BIDWM #12 capsule 07/30/18 Allergies Allergy/AdvReac Type Severity Reaction Status Date / Time cephalexin [From Keflex] Allergy Hives Verified 04/15/18 08:38 ciprofloxacin [From Cipro] AdvReac Hives Verified 04/15/18 08:38 All systems ED: reviewed and negative except as stated. Review of Systems: As Per HPI Constitutional: Denies: fever, chills, weakness Eyes: Denies: eye pain, eye discharge ENT ED: Denies: ear pain, throat pain Cardiovascular: Denies: chest pain, palpitations, dyspnea on exertion Respiratory: Denies: cough, dyspnea, wheezes Gastrointestinal: Reports: hematemesis. Denies: abdominal pain, nausea, vomiting Genitourinary: Denies: urgency, dysuria, frequency Musculoskeletal: Denies: back pain, neck pain Integumentary: Denies: rash, abrasion Neurological: Denies: headache Psychiatric: Denies: anxiety, depression Endocrine: Denies: fatigue Hematological/Lymphatic: Reports: easy bleeding. Denies: easy bruising Allergic/Immunologic: Denies: facial swelling, urticaria Past Medical History - Past Medical History Attestation: Yes The following information was validated with the patient. Source: patient, old records reviewed, obtained from family (Caregiver), nursing notes reviewed Medical history: Reports: atrial fibrillation, cancer, CVA, dementia, hypertension, kidney stones Surgical history: Reports: breast surgery, cancer surgery, colectomy, orthopedic, other, ureteral stent Psychiatric history: Reports: no psych history COLLATERAL SPECIALIST history: Reports: no COLLATERAL SPECIALIST history - Social History Smoking Status: Former smoker Smokeless Tobacco Status: No Alcohol use: Reports: none Drug use: Reports: none Physical Exam - General Limitations: no limitations General appearance: alert, in no apparent distress, anxious - Head Head exam: atraumatic, normocephalic, normal inspection - Eye Eye exam: Present: normal appearance, PERRL, EOMI - ENT ENT exam: normal exam, normal oropharynx, mucous membranes moist, TM's normal bilaterally, normal external ear exam - Neck Neck exam: Present: normal inspection, full ROM, trachea midline - Chest Chest inspection: Present: normal inspection, symmetric chest wall rise - Respiratory Respiratory exam: Present: normal lung sounds bilaterally - Cardiovascular Cardiovascular exam: Present: regular rate, normal rhythm, normal heart sounds - Abdominal Exam Abdominal exam: Present: soft, distention, diminished bowel sounds, other (Gross bloody stool) - Rectal Exam Incident Commander present during exam: Yes (LM Rn) Rectal exam: Present: heme (+) stool - Extremities Exam Extremities exam: Present: normal inspection, full ROM, normal capillary refill. Absent: tenderness, pedal edema, joint swelling, calf tenderness - Expanded Lower Extremity Exam Gait: not tested/not observed, other (Able to weight transfer only reportedly) - Back Exam Back exam: Present: normal inspection, full ROM. Absent: muscle spasm - Neurological Exam Neurological exam: Present: alert, oriented X3, CN II-XII intact - Psychiatric Psychiatric exam: Present: normal affect, normal mood - Skin Skin exam: Present: warm, dry, intact, normal color Course Course Narrative: Patient seen and examined patient was attempted to get up to the bedside commode but was too weak to maintain her strength as result on exam she had gross blood at the rectum [place] data was ordered including a type and screen Vital Signs Temperature 97.0 F L 07/29/18 00:32 Pulse Rate 57 07/29/18 00:32 Respiratory Rate 18 07/29/18 00:32 Blood Pressure 130/62 07/29/18 00:32 O2 Sat by Pulse Oximetry 97 07/29/18 00:32 Temperature 98.2 F 07/30/18 06:44 Pulse Rate 48 07/30/18 06:44 Respiratory Rate 14 07/30/18 06:44 Blood Pressure 132/58 07/30/18 06:44 O2 Sat by Pulse Oximetry 94 07/30/18 02:44 Oxygen Delivery Oxygen Delivery Room Air GI Bleed - Differential Diagnosis Likely: hemorrhoids, gastritis, Lower gastrointestinal hemorrhage, hematochezia - Medical Records Medical records reviewed: Yes I reviewed the patient's medical records. - Lab Data Lab results reviewed: Yes I reviewed the patient's lab results. Result diagrams: 07/30/18 05:13 07/29/18 01:17 Lab Results 07/29/18 07/29/18 07/29/18 Range/Units 01:10 01:17 01:17 WBC 9.7 (4.3-11.1) K/mcL RBC 4.80 (3.82-4.97) M/mcL Hgb 13.5 (11.5-15.4) g/dL Hct 44.0 (35.3-44.9) % MCV 91.7 (83.0-100.0) fL MCH 28.1 (28.0-33.3) pg MCHC 30.7 L (31.6-35.5) g/dL RDW 14.9 H (11.5-14.5) % Plt Count 235 (140-400) K/mcL MPV 12.8 H (9.4-12.4) fL Immature Gran % 0.2 (0-4) % Seg Neutrophils % 65.8 % Lymphocytes % 21.8 % Monocytes % 9.4 % Eosinophils % 2.0 % Basophils % 0.8 % Neutrophils # 6.4 (1.6-8.9) K/mcL Lymphocytes # 2.1 (0.6-4.6) K/mcL Monocytes # 0.9 (0.0-1.3) K/mcL Eosinophils # 0.2 (0.0-0.6) K/mcL Basophils # 0.1 (0.0-0.2) K/mcL PT 15.6 H (9.4-12.1) Seconds INR 1.4 APTT 38.4 H (26.0-36.0) Seconds Sodium (136-145) mEq/L Potassium (3.5-5.1) mEq/L Chloride (98-107) mEq/L Carbon Dioxide (23-29) mEq/L BUN (8-23) mg/dL Creatinine (0.60-1.20) mg/dL Est GFR ( Amer) (> 60) Est GFR (Non-Af Amer) (> 60) BUN/Creatinine Ratio (6-26) Glucose (70-105) mg/dL Calculated Osmolality (280-300) Calcium (8.6-10.3) mg/dL Total Bilirubin (0.3-1.0) mg/dL AST (13-39) Units/L ALT (7-52) Units/L Alkaline Phosphatase (34-104) Units/L Serum Total Protein (6.4-8.9) g/dL Albumin (3.5-5.7) g/dL Globulin (2.4-3.5) g/dL Albumin/Globulin Ratio (1.1-2.2) Digoxin 1.7 (0.8-2.0) ng/mL Blood Type Antibody Screen 07/29/18 07/29/18 07/29/18 Range/Units 01:17 01:17 06:10 WBC (4.3-11.1) K/mcL RBC (3.82-4.97) M/mcL Hgb 13.1 (11.5-15.4) g/dL Hct 42.6 (35.3-44.9) % MCV (83.0-100.0) fL MCH (28.0-33.3) pg MCHC (31.6-35.5) g/dL RDW (11.5-14.5) % Plt Count (140-400) K/mcL MPV (9.4-12.4) fL Immature Gran % (0-4) % Seg Neutrophils % % Lymphocytes % % Monocytes % % Eosinophils % % Basophils % % Neutrophils # (1.6-8.9) K/mcL Lymphocytes # (0.6-4.6) K/mcL Monocytes # (0.0-1.3) K/mcL Eosinophils # (0.0-0.6) K/mcL Basophils # (0.0-0.2) K/mcL PT (9.4-12.1) Seconds INR APTT (26.0-36.0) Seconds Sodium 141 (136-145) mEq/L Potassium 4.0 (3.5-5.1) mEq/L Chloride 103 (98-107) mEq/L Carbon Dioxide 34 H (23-29) mEq/L BUN 11 (8-23) mg/dL Creatinine 0.58 L (0.60-1.20) mg/dL Est GFR ( Amer) > 60 (> 60) Est GFR (Non-Af Amer) > 60 (> 60) BUN/Creatinine Ratio 19 (6-26) Glucose 105 (70-105) mg/dL Calculated Osmolality 292 (280-300) Calcium 8.8 (8.6-10.3) mg/dL Total Bilirubin 0.3 (0.3-1.0) mg/dL AST 8 L (13-39) Units/L ALT 5 L (7-52) Units/L Alkaline Phosphatase 83 (34-104) Units/L Serum Total Protein 5.7 L (6.4-8.9) g/dL Albumin 3.0 L (3.5-5.7) g/dL Globulin 2.7 (2.4-3.5) g/dL Albumin/Globulin Ratio 1.1 (1.1-2.2) Digoxin (0.8-2.0) ng/mL Blood Type A POSITIVE Antibody Screen NEGATIVE - Radiology Data Radiology results reviewed: Yes I reviewed the patient's radiology results. Critical Care Time Critical Care Time: No
[2018-07-29 01:28] LABS: Basophils # 0.1 K/mcL (0.0-0.2); Basophils % 0.8 %; Eosinophils # 0.2 K/mcL (0.0-0.6); Hemoglobin 13.5 g/dL (11.5-15.4); Immature Granulocytes % 0.2 % (0-4); Lymphocytes # 2.1 K/mcL (0.6-4.6); Lymphocytes % 21.8 %; Mean Corpuscular HGB Conc 30.7 g/dL (31.6-35.5); Mean Corpuscular Hemoglobin 28.1 pg (28.0-33.3); Mean Corpuscular Volume 91.7 fL (83.0-100.0); Mean Platelet Volume 12.8 fL (9.4-12.4); Monocytes # 0.9 K/mcL (0.0-1.3); Monocytes % 9.4 %; Neutrophils # 6.4 K/mcL (1.6-8.9); Platelet Count 235 K/mcL (140-400); Red Cell Distribution Width 14.9 % (11.5-14.5); Segmented Neutrophils % 65.8 %
[2018-07-29 01:35] LABS: INR 1.4; Prothrombin Time 15.6 Seconds (9.4-12.1)
[2018-07-29 01:38] LABS: Activated Partial Thrombo Time 38.4 Seconds (26.0-36.0)
[2018-07-29 01:47] LABS: Alanine Aminotransferase 5 Units/L (7-52); Albumin/Globulin Ratio 1.1 (1.1-2.2); Alkaline Phosphatase 83 Units/L (34-104); Aspartate Amino Transferase 8 Units/L (13-39); BUN/Creatinine Ratio 19 (6-26); Bilirubin,Total 0.3 mg/dL (0.3-1.0); Blood Urea Nitrogen 11 mg/dL (8-23); Calcium 8.8 mg/dL (8.6-10.3); Carbon Dioxide 34 mEq/L (23-29); Chloride 103 mEq/L (98-107); Globulin 2.7 g/dL (2.4-3.5); Sodium 141 mEq/L (136-145); Total Protein 5.7 g/dL (6.4-8.9); eGFR For Non-African Americans > 60 (> 60)
[2018-07-29 12:35] LABS: Hematocrit 42.6 % (35.3-44.9); Hemoglobin 13.1 g/dL (11.5-15.4)
[2018-07-29 13:01] LABS: Glucose 105 mg/dL (70-105); Osmolality,Calculated 292 (280-300)
--- NOTE | 2018-07-29 14:34 | Internal Med History&Physical ---
Date of Encounter: 07/29/18 Time of Encounter: 14:05 Assessment and Plan (1) Hematochezia Current visit: Yes Status: Acute Aspirin and Xarelto will be held. CBC will be checked in a.m. Aggressive workup will not be done in view of her overall status and previous decline of workup for possible renal cell cancer and colon polyp follow-up. (2) CVA, old, dysphagia Current visit: No Status: Acute Hold aspirin. In view of her overall poor condition it would not be unreasonable to completely discontinue this. (3) Atrial fibrillation Current visit: No Status: Chronic Whole Xarelto for now. Qualifiers: Atrial fibrillation type: paroxysmal Qualified Code(s): I48.0 - Paroxysmal atrial fibrillation Internal Medicine - H&P: HPI Chief complaint: Hematochezia Admitted From: Emergency Dept Plans for Post Hospital Care: Home History of present illness: Ms. Resendez is a 83 year old female who came to emergency room after caregivers reported she had multiple episodes of hematochezia onset 36 -48 hours earlier. She had no complaints of vomiting or abdominal pain. Caregivers report she had constipation for a few days preceding the hematochezia. She was evaluated in emergency room and admitted to [facility] floor for ongoing care needs. She denies pain at the present time. She has not had previous hematochezia. She had approximately 8-1/2 feet of small and large bowel resection with primary anastomosis many years ago. She has declined colonoscopy for follow-up of colon polyps. There is no known disorder of liver gallbladder or exocrine pancreas. Past Med Surg Social Fam HX - Past Medical History Medical history: atrial fibrillation, cancer, CVA, dementia, hypertension, kidney stones Additional medical history: hard of hearing. dysphagia. left hemiplegia. hx of pneumonia. right kidney mass Psychiatric history: no psych history - Past Surgical History Surgical History: breast surgery, cancer surgery, colectomy, orthopedic, other, ureteral stent Additional surgical history: Left masectomy. Left leg - Social History Smoking Status: Former smoker Smokeless Tobacco Status: No Alcohol use: none Drug use: none Internal Medicine - H&P: Meds Potassium Chloride [Klor-Con 10] 20 meq PO DAILY 01/31/17 [History] Diltiazem CD (24hr) [Cardizem CD] 120 mg PO DAILY #30 cap.er.24h 06/14/17 [Rx] Ascorbic Acid [Vitamin C] 500 mg PO DAILY #30 tablet.er 07/31/17 [Rx] Cyanocobalamin (B-12) [Vitamin B12] 1,000 mcg PO DAILY #30 tablet 07/31/17 [Rx] Ferrous Sulfate 325 mg PO DAILY #30 tablet 07/31/17 [Rx] Cholecalciferol (Vitamin D3) [Vitamin D3] 600 unit PO QAM 10/12/17 [History] Donepezil [Aricept] 5 mg PO HS 10/12/17 [History] Rivaroxaban [Xarelto] 20 mg PO DAILY 10/12/17 [History] Ondansetron [Zofran] 4 mg PO Q6HR 03/12/18 [History] Cran/Vitc/Mannose/Fos/Bromeln [Cystex Cranberry Liquid] 5 ml PO DAILY 04/15/18 [History] Docusate [Colace] 100 mg PO DAILY 04/15/18 [History] Multivitamin [Zoo Chews] 1 tab PO DAILY PRN #0 04/20/18 [Rx] ALPRAZolam [Xanax 0.5 MG Tablet] 0.25 tab PO BID 30 Days #30 04/29/18 [Rx] Ascorbic Acid [Vitamin C] 500 mg PO 0630 #30 tablet 04/29/18 [Rx] Aspirin 81 mg PO Q48H #0 04/29/18 [Rx] Digoxin [Lanoxin] 0.25 mg PO DAILY #30 tablet 04/29/18 [Rx] Ferrous Sulfate 325 mg PO DAILY #30 tablet 04/29/18 [Rx] Omeprazole [PriLOSEC] 20 mg PO DAILY PRN #0 04/29/18 [Rx] Nitrofurantoin (BID) [Macrobid] 100 mg PO BID #10 capsule 07/10/18 [Rx] Allergy/AdvReac Type Severity Reaction Status Date / Time cephalexin [From Keflex] Allergy Hives Verified 04/15/18 08:38 ciprofloxacin [From Cipro] AdvReac Hives Verified 04/15/18 08:38 All Systems PM: A 10-system review of systems was performed and is negative for pertinent findings except as documented above in the HPI. Review of systems: Review of systems from April 2018 [facility] hospitalization were reviewed and revised as below. Gen.: Her weight has been stable at approximately 50 kg since April 2018 [facility] hospitalization. It has decreased from approximately 130 pounds December 2013 Cardiovascular: She has had previously documented paroxysmal atrial fibrillation and takes Xarelto. She has hypertension but no [place] heart failure DVT or pulmonary embolus. Respiratory: She smoked from age [age] but has no known chronic lung disease. GI: As per history of present illness : She had CT scan to further evaluate hematuria December 2017. An 11 mm enhancing hypodense lesion was seen in the inferior pole of the right kidney suspicious for renal cell carcinoma. The patient refused further evaluation. No other kidney or bladder disorders are known. Neurologic: She has had multiple strokes with involvement of the right frontal, right parietal, and right cerebellum. She uses a walker at home. She has not had seizures. She has dementia. Endocrine: She has no known diabetes or thyroid disease but has history of dyslipidemia Hematology/oncology: She had left mastectomy in 1993 for breast CA which was apparently curative. She has a right kidney mass as per above with no further workup done due to patient refusal. Psychiatric: She has no known anxiety depression or other mental health issues Musk skeletal: She has history of osteoporosis but does not have significant arthritis or other bone joint or muscle disorders. - Constitutional Vitals: Temp Pulse Resp BP Pulse Ox 97.0 F L 55 18 126/56 94 07/29/18 00:32 07/29/18 02:00 07/29/18 02:00 07/29/18 02:00 07/29/18 02:00 Exam: Gen.: She is a well-developed well-nourished female resting comfortably in bed who appears in no acute distress at present time HEENT: Head is atraumatic and normocephalic. Eyes: EOMI. There is no scleral icterus. Mouth: Mucosa is moist. Neck: Supple and nontender. There is no thyromegaly or adenopathy noted. Heart: Regular without murmurs gallops or ectopics Lungs: No wheezes or crackles are heard. Abdomen: Soft and nontender. No masses or guarding are noted. Bowel sounds are present. Extremities: There is no edema of her ankles. 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 Neurologic: Mental status: She is able to answer a few questions but is a poor historian. Cranial nerves: She has slight flattening of the left nasolabial fold. Forehead wrinkles bilaterally. Tongue protrudes midline. EOMI. Motor: She cannot pronate the left arm well. The right arm pronates properly. Cerebellar: Finger to nose is intact bilaterally. Skin: Warm and dry Internal Med - H&P Results - Labs CBC & Chem 7: 07/29/18 06:10 07/29/18 01:17 Labs: Short CBC 07/29/18 07/29/18 Range/Units 01:17 06:10 WBC 9.7 (4.3-11.1) K/mcL Hgb 13.5 13.1 (11.5-15.4) g/dL Hct 44.0 42.6 (35.3-44.9) % Plt Count 235 (140-400) K/mcL Neutrophils # 6.4 (1.6-8.9) K/mcL BMP 07/29/18 01:17 Sodium 141 Potassium 4.0 Chloride 103 Carbon Dioxide 34 H BUN 11 Creatinine 0.58 L Glucose 105 Calcium 8.8 Liver Function 07/29/18 Range/Units 01:17 Total Bilirubin 0.3 (0.3-1.0) mg/dL AST 8 L (13-39) Units/L ALT 5 L (7-52) Units/L Alkaline Phosphatase 83 (34-104) Units/L Albumin 3.0 L (3.5-5.7) g/dL - Impressions ITS Impressions Abdomen/Pelvis CT 07/29/18 01:01 IMPRESSION: Gas in the urinary bladder may indicate cystitis if there has not been recent catheterization. Otherwise no acute findings. D/ / Dony Daley MD / Dony Daley MD Interpreting Provider: Dony Daley MD
[2018-07-29] MEDS ORDERED: Ondansetron ODT 4 MG TAB.RAPDIS SL PRN (17:06)
[2018-07-29] MEDS ORDERED: ALPRAZolam 0.25 MG TABLET PO PRN (17:12)
[2018-07-29] MEDS: Nitrofurantoin (BID) 100 MG CAPSULE PO SCH (18:25)
[2018-07-30 06:06] LABS: Basophils # 0.1 K/mcL (0.0-0.2); Basophils % 0.7 %; Eosinophils # 0.2 K/mcL (0.0-0.6); Eosinophils % 2.5 %; Hematocrit 42.5 % (35.3-44.9); Hemoglobin 13.2 g/dL (11.5-15.4); Immature Granulocytes % 0.3 % (0-4); Lymphocytes # 1.9 K/mcL (0.6-4.6); Lymphocytes % 21.1 %; Mean Corpuscular HGB Conc 31.1 g/dL (31.6-35.5); Mean Corpuscular Hemoglobin 28.1 pg (28.0-33.3); Mean Corpuscular Volume 90.6 fL (83.0-100.0); Mean Platelet Volume 13.1 fL (9.4-12.4); Monocytes # 0.8 K/mcL (0.0-1.3); Monocytes % 8.6 %; Neutrophils # 6.1 K/mcL (1.6-8.9); Platelet Count 247 K/mcL (140-400); Red Blood Count 4.69 M/mcL (3.82-4.97); Red Cell Distribution Width 14.7 % (11.5-14.5); Segmented Neutrophils % 66.8 %
[2018-07-30 06:46] VITALS: BP 132/58
[2018-07-30] MEDS ORDERED: Diltiazem CD (24hr) 120 MG CAPSULE PO SCH (09:00)
[2018-07-30] MEDS ORDERED: *HR* Digoxin 0.25 MG TABLET PO SCH (09:00)
--- NOTE | 2018-07-30 09:24 | Discharge Summary ---
Date of Encounter: 07/30/18 Time of Encounter: 09:21 - Discharge Diagnosis (1) Hematochezia Priority: Primary Status: Resolved Comments: Resolved. Mild. Hgb has been stable. Pt is asymptomatic. Etiology unclear, but most suggestive of internal hemorrhoidal bleed following bout of constipation and patient history of known hemorrhoids. Will monitor with new anti-coagulation regimen. Bowel regimen as discussed. Pt has deferred aggressive evaluation given age and comorbidities. (2) Urinary tract infection Priority: Secondary Status: Acute Comments: Pt with hx of recurrent UTI. CT abd/pelvis with evidence of gas involving urinary bladder. Will continue macrobid to complete 7 day course. Qualifiers: Urinary tract infection type: acute cystitis Hematuria presence: without hematuria Qualified Code(s): N30.00 - Acute cystitis without hematuria (3) Paroxysmal atrial fibrillation Priority: Secondary Status: Chronic Comments: Rate-controlled. CHADSVASC score of 6. Will hold ASA and NOAC for additional 3 days. Will then have pt resume 81mg ASA at every 48 hours. Will change NOAC to apixiban to further reduce GI bleed risk while also mitigating future CVA risk given pt high stroke risk. (4) Dementia Priority: Secondary Status: Chronic Comments: Moderate. Stable. Patient has been at baseline throughout hospital stay. Qualifiers: Dementia type: vascular dementia Dementia behavioral disturbance: without behavioral disturbance Qualified Code(s): F01.50 - Vascular dementia without behavioral disturbance (5) Internal hemorrhoids Priority: Secondary Status: Chronic Comments: Bowel regimen and supportive care as discussed. Hospital course: Ms. Resendez is a 83 year old female that presented to ED followed a single, isolated episode of bright red blood per rectum following 2-3 days of constipation. She was noted to have gas within her urinary bladder upon CT abd/pelvis while in the emergency department. Pt was place on oral antibiotic. No further hematochezia was documented. Hemoglobin remained stable. Pt did well and was at her baseline throughout her hospital stay. Xarelto was changed to Eliquis at time of discharge to reduce further GI bleeding risk. She was asked to resume NOAC and ASA 3 days after discharge. She will complete a 7 day antibiotic course for UTI. Discharge discussed with: other (home health aide) - Time Spent with Patient Total time spent providing and/or coordinating discharge services: Less than 30 minutes - Discharge Medications Prescriptions: Apixaban [Eliquis] 5 mg PO BID #60 tablet RX: Nitrofurantoin (BID) [Macrobid] 100 mg PO BIDWM #12 capsule Home Medications: RX: Potassium Chloride [Klor-Con 10] 20 meq PO DAILY 01/31/17 [History] RX: Diltiazem CD (24hr) [Cardizem CD] 120 mg PO DAILY #30 cap.er.24h 06/14/17 [Rx] RX: Ascorbic Acid [Vitamin C] 500 mg PO DAILY #30 tablet.er 07/31/17 [Rx] RX: Cyanocobalamin (B-12) [Vitamin B12] 1,000 mcg PO DAILY #30 tablet 07/31/17 [ Rx] RX: Ferrous Sulfate 325 mg PO DAILY #30 tablet 07/31/17 [Rx] RX: Cholecalciferol (Vitamin D3) [Vitamin D3] 600 unit PO QAM 10/12/17 [History] RX: Donepezil [Aricept] 5 mg PO HS 10/12/17 [History] RX: Ondansetron [Zofran] 4 mg PO Q6HR 03/12/18 [History] RX: Cran/Vitc/Mannose/Fos/Bromeln [Cystex Cranberry Liquid] 5 ml PO DAILY 04/15/18 [History] RX: Docusate [Colace] 100 mg PO DAILY 04/15/18 [History] RX: Multivitamin [Zoo Chews] 1 tab PO DAILY PRN #0 04/20/18 [Rx] RX: ALPRAZolam [Xanax 0.5 MG Tablet] 0.25 tab PO BID 30 Days #30 04/29/18 [Rx] RX: Ascorbic Acid [Vitamin C] 500 mg PO 0630 #30 tablet 04/29/18 [Rx] RX: Aspirin 81 mg PO Q48H #0 04/29/18 [Rx] RX: Digoxin [Lanoxin] 0.25 mg PO DAILY #30 tablet 04/29/18 [Rx] RX: Ferrous Sulfate 325 mg PO DAILY #30 tablet 04/29/18 [Rx] RX: Omeprazole [PriLOSEC] 20 mg PO DAILY PRN #0 04/29/18 [Rx] Apixaban [Eliquis] 5 mg PO BID #60 tablet 07/30/18 [Rx] RX: Atorvastatin [Lipitor] 10 mg PO HS tablet 07/30/18 [Rx] RX: Nitrofurantoin (BID) [Macrobid] 100 mg PO BIDWM #12 capsule 07/30/18 [Rx] Allergies/Adverse Reactions: Allergy/AdvReac Type Severity Reaction Status Date / Time cephalexin [From Keflex] Allergy Hives Verified 04/15/18 08:38 ciprofloxacin [From Cipro] AdvReac Hives Verified 04/15/18 08:38 Date of admission: 07/29/18 16:38 Primary care physician: Mikie Arana MD Consults: None Discharging clinician: Santos Escalera Anticipated date of discharge: 07/30/18 - Constitutional Vitals: Temp Pulse Resp BP Pulse Ox 98.2 F 48 14 132/58 94 07/30/18 06:44 07/30/18 06:44 07/30/18 06:44 07/30/18 06:44 07/30/18 02:44 Exam: Gen: Lying in bed, NAD HEENT: NC, AT Neck: Trachea midline, no mass Pulm: No respiratory distress, CTAB CV: Normal S1 and S2, RRR Abdomen: Soft, ND, + mild periumbilical tenderness without rebound or guarding, BS in all 4 quadrants Ext: No C/C/E Neuro: No appreciable motor/sensor deficits Skin: Warm and dry, no rash Psych: A&Ox3 - Patient Status Disposition: Home Health Service Condition: Fair Functional capacity at discharge: uses cane/walker Overall status at discharge: patient is back to baseline - Discharge Instructions Instructions: Atrial Fibrillation (DC) Follow Up With: Mikie Arana MD [Primary Care Provider] - 08/03/18 3:00 pm (Please see Cornelia Inman) Additional Instructions: Please do not begin aspirin and Eliquis until Thursday, August 02. If further bleeding occurs, please remain off Aspirin and Eliquis and contact Dr. Arana. - Diet and Activity Activity: increase activity as tolerated Diet: advance to your usual diet - VTE Reasons for not Prescribing Prophylaxis: Medical contraindication
[2018-07-30 10:15] LABS: Bilirubin,Urine Negative (Negative); Blood,Urine Small (Negative); Clarity,Urine Clear (Clear); Color,Urine Yellow (Yellow); Glucose,Urine (UA) Normal (Normal); Ketones,Urine Negative (Negative); Leukocyte Esterase,Urine Trace (Negative); Nitrite,Urine Negative (Negative); PH,Urine 5.5 pH Units (5.0-8.0); Protein,Urine Negative (Neg-Trace); Specific Gravity,Urine >= 1.030 (1.010-1.025); Urobilinogen,Urine Normal (Normal)
[2018-07-30] MEDS: Nitrofurantoin (BID) 100 MG CAPSULE PO SCH (10:17)
[2018-07-30 10:27] LABS: Squamous Epithelial Cell,Urine Many per lpf (None-Few); Waxy Casts,Urine Moderate per lpf (None Seen)
[2018-07-30 10:28] LABS: Hyaline Casts,Urine Few per lpf (None-Few); Renal Epithelial Cells,Urine Few per hpf (None-Few)
[2018-07-30 10:29] LABS: Bacteria,Urine Many per hpf (None-Few); Mucus,Urine Few (Few); Transitional Epi Cells,Urine Few per hpf (None-Few)
== END 2018-07-30 13:45 | disposition home health service (06) ==
LOC: INPPIK 00:28 → EMEROOPIK 00:28 → INPPIK 03:15
PROVIDERS: ADMIT Internal Medicine; ATTEND Internal Medicine

== ENCOUNTER 2018-11-25 08:28 | Observation (INO) ==
--- NOTE | 2018-11-25 08:59 | Emergency Department Note ---
Disposition Clinical Impression: Pneumonia, Hypoxia Disposition: Admitted As Inpatient Condition: Fair Referrals: Mikie Arana MD [Primary Care Provider] - Forms: ED Satisfaction Letter Time of Disposition: 12:11 URI/Sore Throat HPI - General Chief Complaint: ED Upper Respiratory Infection Stated Complaint: cough, bodyaches, chills Time Seen by Provider: 11/25/18 08:30 Source: patient Mode of arrival: wheelchair Limitations: no limitations - History of Present Illness HPI Narrative: 83 is weak and frail F that is with her states though that she is just not up to her normal she's been short of breath dyspneic they try to get her to go to the doctor she wanted to the family physician but they said that she was too pale and weak as a result they brought her here somewhat frustrated they brought her here she tells me though that she's having cough congestion shortness of breath some phlegm production she's had a little intermittent fever she's had no apnea and no cyanosis no diarrhea no melena no pain or discomfort with urinating or stooling states she's had no swelling or edema she said she just rather see her family doctor thought she was being an inconvenience to the emergency room nursing care staff that is with her states that she was hypoxic adding O2 sats w hich is why they brought her here Pt Subjective Complaint: fever, cough, flu symptoms Onset (ago): day(s) Duration: constant, gradually worsening Severity: mild Severity scale (1-10): 2 Improves with: nothing Worsens with: nothing If sputum, description: watery Context: sick contacts Associated symptoms: Reports: diaphoresis, nasal congestion, cough, shortness of breath. Denies: fever, chills, voice changes, myalgias, headache, rhinorrhea, sore throat, stiff neck, chest pain, abdominal pain, nausea, vomiting, diarrhea, dysuria, rash, epistaxis, ear pain Treatments prior to arrival: none - Related Data Home Medications Medication Instructions Recorded Confirmed Potassium Chloride [Klor-Con 10] 20 meq PO DAILY 01/31/17 11/25/18 Cholecalciferol (Vitamin D3) 600 unit PO QAM 10/12/17 11/25/18 [Vitamin D3] Donepezil [Aricept] 5 mg PO HS 10/12/17 11/25/18 Ondansetron [Zofran] 4 mg PO Q6HR 03/12/18 11/25/18 Cran/Vitc/Mannose/Fos/Bromeln 5 ml PO DAILY 04/15/18 11/25/18 [Cystex Cranberry Liquid] Docusate [Colace] 100 mg PO DAILY 04/15/18 11/25/18 Previous Rx's Medication Instructions Recorded Diltiazem CD (24hr) [Cardizem CD] 120 mg PO DAILY #30 cap.er.24h 06/14/17 Cyanocobalamin (B-12) [Vitamin B12] 1,000 mcg PO DAILY #30 tablet 07/31/17 Multivitamin [Zoo Chews] 1 tab PO DAILY PRN #0 04/20/18 ALPRAZolam [Xanax 0.5 MG Tablet] 0.25 tab PO BID 30 Days #30 04/29/18 Ascorbic Acid [Vitamin C] 500 mg PO 0630 #30 tablet 04/29/18 Aspirin 81 mg PO Q48H #0 04/29/18 Digoxin [Lanoxin] 0.25 mg PO DAILY #30 tablet 04/29/18 Ferrous Sulfate 325 mg PO DAILY #30 tablet 04/29/18 Omeprazole [PriLOSEC] 20 mg PO DAILY PRN #0 04/29/18 Apixaban [Eliquis] 5 mg PO BID #60 tablet 07/30/18 Atorvastatin [Lipitor] 10 mg PO HS tablet 07/30/18 Allergies Allergy/AdvReac Type Severity Reaction Status Date / Time cephalexin [From Keflex] Allergy Hives Verified 04/15/18 08:38 ciprofloxacin [From Cipro] AdvReac Hives Verified 04/15/18 08:38 All systems ED: reviewed and negative except as stated. Review of Systems: As Per HPI Constitutional: Reports: weakness. Denies: fever, chills Eyes: Denies: eye pain, eye discharge ENT ED: Denies: ear pain, throat pain, dental pain, hearing loss Cardiovascular: Reports: dyspnea on exertion. Denies: chest pain, palpitations Respiratory: Reports: cough, dyspnea, wheezes, sputum production Gastrointestinal: Denies: abdominal pain, nausea, vomiting Genitourinary: Denies: urgency, dysuria, frequency Musculoskeletal: Denies: back pain, neck pain Integumentary: Denies: rash, abrasion, lesions Neurological: Denies: headache, weakness Psychiatric: Denies: anxiety Endocrine: Denies: fatigue Hematological/Lymphatic: Denies: easy bleeding Allergic/Immunologic: Denies: facial swelling URI PMH - Past Medical History Medical history: Reports: atrial fibrillation, cancer, CVA, dementia, hypertension, kidney stones Surgical history: Reports: breast surgery, cancer surgery, colectomy, orthopedic, other, ureteral stent Psychiatric history: Reports: no psych history NURSE RECEPTIONIST history: Reports: no NURSE RECEPTIONIST history - Social History Smoking Status: Former smoker Alcohol use: Reports: none Drug use: Reports: none Physical Exam - General Limitations: no limitations, age General appearance: alert, in no apparent distress, anxious, other (Hard of hearing) - Head Head exam: atraumatic, normocephalic, normal inspection - Eye Eye exam: Present: normal appearance, PERRL, EOMI - ENT ENT exam: normal exam, normal oropharynx, mucous membranes moist, TM's normal bilaterally, normal external ear exam - Neck Neck exam: Present: normal inspection, full ROM, trachea midline - Chest Chest inspection: Present: normal inspection, symmetric chest wall rise - Respiratory Respiratory exam: Present: normal lung sounds bilaterally, prolonged expiratory phase, other (Diminished breath sounds) - Cardiovascular Cardiovascular exam: Present: irregular rhythm, normal heart sounds - Abdominal Exam Abdominal exam: Present: soft, Non-Tender, normal bowel sounds. Absent: mass, pulsatile mass - Extremities Exam Extremities exam: Present: normal inspection, full ROM, normal capillary refill. Absent: tenderness, pedal edema, joint swelling, calf tenderness - Expanded Lower Extremity Exam Neurovascular/Tendon exam: Present: normal capillary refill, normal fine/light touch Gait: observed and normal - Back Exam Back exam: Present: normal inspection, full ROM. Absent: muscle spasm - Neurological Exam Neurological exam: Present: alert, oriented X3, CN II-XII intact - Psychiatric Psychiatric exam: Present: normal affect, normal mood - Skin Skin exam: Present: warm, dry, intact, normal color Course Course Narrative: Patient was immediately seen and evaluated patient was admitted transfer to [facility] having a right upper lobe right middle lobe pneumonia stable at time of transfer to the floor the initial chest x-ray did not show any evidence of pneumonia as result a CT was performed which did show evidence of a pneumonia p rocess Vital Signs Temperature 98.4 F 11/25/18 08:30 Pulse Rate 89 02/14/19 08:30 Respiratory Rate 18 11/25/18 08:30 Blood Pressure 139/81 11/25/18 08:30 O2 Sat by Pulse Oximetry 86 11/25/18 08:30 Temperature 98.5 F 11/25/18 08:58 Pulse Rate 72 11/25/18 11:13 Respiratory Rate 18 11/25/18 11:13 Blood Pressure 123/54 11/25/18 11:13 O2 Sat by Pulse Oximetry 96 11/25/18 11:13 Oxygen Delivery Oxygen Delivery Room Air Upper Respiratory Infection - MDM Narrative Medical decision making narrative: COPD congestive heart failure - Differential Diagnosis Differential Diagnosis: Likely: upper respiratory infection, bronchitis, pharyngitis, pneumonia - Medical Records Medical records reviewed: Yes I reviewed the patient's medical records. - Lab Data Lab results reviewed: Yes I reviewed the patient's lab results. Result diagrams: 11/25/18 09:18 11/25/18 09:18 Lab Results 11/25/18 11/25/18 11/25/18 Range/Units 09:18 09:18 09:18 WBC 9.0 (4.3-11.1) K/mcL RBC 5.26 H (3.82-4.97) M/mcL Hgb 15.5 H (11.5-15.4) g/dL Hct 48.1 H (35.3-44.9) % MCV 91.4 (83.0-100.0) fL MCH 29.5 (28.0-33.3) pg MCHC 32.2 (31.6-35.5) g/dL RDW 15.0 H (11.5-14.5) % Plt Count 209 (140-400) K/mcL MPV 13.2 H (9.4-12.4) fL Immature Gran % 0.3 (0-4) % Seg Neutrophils % 80.1 % Lymphocytes % 5.9 % Monocytes % 10.1 % Eosinophils % 2.6 % Basophils % 1.0 % Neutrophils # 7.2 (1.6-8.9) K/mcL Lymphocytes # 0.5 L (0.6-4.6) K/mcL Monocytes # 0.9 (0.0-1.3) K/mcL Eosinophils # 0.2 (0.0-0.6) K/mcL Basophils # 0.1 (0.0-0.2) K/mcL PT 14.9 H (9.4-12.1) Seconds INR 1.3 APTT 37.2 H (26.0-36.0) Seconds Sodium 142 (136-145) mEq/L Potassium 3.7 (3.5-5.1) mEq/L Chloride 104 (98-107) mEq/L Carbon Dioxide 31 H (23-29) mEq/L BUN 9 (8-23) mg/dL Creatinine 0.61 (0.60-1.20) mg/dL Est GFR ( Amer) > 60 (> 60) Est GFR (Non-Af Amer) > 60 (> 60) BUN/Creatinine Ratio 15 (6-26) Glucose 104 (70-105) mg/dL Calculated Osmolality 293 (280-300) Lactic Acid (0.5-2.2) mmol/L Calcium 9.2 (8.6-10.3) mg/dL Troponin I < 0.03 (< 0.04) ng/mL B-Natriuretic Peptide (Less than 100) pg/mL Urine Color (Yellow) Urine Clarity (Clear) Urine pH (5.0-8.0) pH Units Ur Specific [place] (1.010-1.025) Urine Protein (Neg-Trace) mg/dL Urine Glucose (UA) (Normal) mg/dL Urine Ketones (Negative) mg/dL Urine Blood (Negative) Urine Nitrite (Negative) Urine Bilirubin (Negative) Urine Urobilinogen (Normal) mg/dL Ur Leukocyte Esterase (Negative) Urine Microscopic RBC (0-3) per hpf Urine Microscopic WBC (0-3) per hpf Ur Squamous Epith Cells (None-Few) per lpf Urine Bacteria (None-Few) per hpf Ur Culture Indicated? (NO) Digoxin 1.6 (0.8-2.0) ng/mL 11/25/18 11/25/18 11/25/18 Range/Units 09:18 09:18 10:30 WBC (4.3-11.1) K/mcL RBC (3.82-4.97) M/mcL Hgb (11.5-15.4) g/dL Hct (35.3-44.9) % MCV (83.0-100.0) fL MCH (28.0-33.3) pg MCHC (31.6-35.5) g/dL RDW (11.5-14.5) % Plt Count (140-400) K/mcL MPV (9.4-12.4) fL Immature Gran % (0-4) % Seg Neutrophils % % Lymphocytes % % Monocytes % % Eosinophils % % Basophils % % Neutrophils # (1.6-8.9) K/mcL Lymphocytes # (0.6-4.6) K/mcL Monocytes # (0.0-1.3) K/mcL Eosinophils # (0.0-0.6) K/mcL Basophils # (0.0-0.2) K/mcL PT (9.4-12.1) Seconds INR APTT (26.0-36.0) Seconds Sodium (136-145) mEq/L Potassium (3.5-5.1) mEq/L Chloride (98-107) mEq/L Carbon Dioxide (23-29) mEq/L BUN (8-23) mg/dL Creatinine (0.60-1.20) mg/dL Est GFR ( Amer) (> 60) Est GFR (Non-Af Amer) (> 60) BUN/Creatinine Ratio (6-26) Glucose (70-105) mg/dL Calculated Osmolality (280-300) Lactic Acid 1.1 (0.5-2.2) mmol/L Calcium (8.6-10.3) mg/dL Troponin I (< 0.04) ng/mL B-Natriuretic Peptide 122 H (Less than 100) pg/mL Urine Color Yellow (Yellow) Urine Clarity Clear (Clear) Urine pH 5.5 (5.0-8.0) pH Units Ur Specific [place] >= 1.030 H (1.010-1.025) Urine Protein Trace (Neg-Trace) mg/dL Urine Glucose (UA) Normal (Normal) mg/dL Urine Ketones 15 H (Negative) mg/dL Urine Blood Small H (Negative) Urine Nitrite Negative (Negative) Urine Bilirubin Negative (Negative) Urine Urobilinogen Normal (Normal) mg/dL Ur Leukocyte Esterase Negative (Negative) Urine Microscopic RBC 0-3 (0-3) per hpf Urine Microscopic WBC 3-5 H (0-3) per hpf Ur Squamous Epith Cells Few (None-Few) per lpf Urine Bacteria Few (None-Few) per hpf Ur Culture Indicated? NO (NO) Digoxin (0.8-2.0) ng/mL - Radiology Data Radiology results reviewed: Yes I reviewed the patient's radiology results. ITS Impressions Chest X-Ray 11/25/18 08:57 IMPRESSION: Small right pleural effusion with adjacent atelectasis. D/ / Augustina Fournier MD / Augustina Fournier MD Interpreting Provider: Augustina Fournier MD Chest CT 11/25/18 10:37 IMPRESSION: 1. Suboptimal evaluation due to breathing motion artifact. 2. Similar appearance of tree-in-bud nodularity throughout the lungs bilaterally most prominent in the right upper lobe and right middle lobe which may be related to sequela of infectious or inflammatory process. 3. Right middle lobe and lingular atelectasis or scarring. 4. Focal 7 mm opacity in the right lower lobe which may be related to infectious or inflammatory process, however discrete nodule cannot be excluded. Short interval follow-up in 3-6 months is recommended to assess stability. D/ / 11/25/2018 11:32:06 Harriet Marques MD / bailey Interpreting Provider: Harriet Marques MD - EKG Data EKG attestation: Yes I reviewed and interpreted this EKG. EKG results narrative: Atrial flutter with predominant 4-1 rate 76 QRS 68 QT 326 axis LXXI Critical Care Time Critical Care Time: Yes Total Critical Care Time: 35 Attestation: Critical care performed: 35 minutes Time is exclusive of separately billable procedures. Time includes: direct patient care, patient reassessment, coordination of patient care, interpretation of data (laboratory data, radiology data, and respiratory data), review of patient's medical records, medical consultation and documentation of patient care. Procedures included in critical care time: Procedures excluded from critical care time: This is due to the patient being hypoxic requiring oxygen trying determine etiology for this including CAT scans and discussion with the hospitalist for admission the services anabiotic syndrome the emergency room
[2018-11-25 09:29] LABS: Basophils # 0.1 K/mcL (0.0-0.2); Eosinophils # 0.2 K/mcL (0.0-0.6); Eosinophils % 2.6 %; Hematocrit 48.1 % (35.3-44.9); Hemoglobin 15.5 g/dL (11.5-15.4); Immature Granulocytes % 0.3 % (0-4); Lymphocytes # 0.5 K/mcL (0.6-4.6); Lymphocytes % 5.9 %; Mean Corpuscular HGB Conc 32.2 g/dL (31.6-35.5); Mean Corpuscular Hemoglobin 29.5 pg (28.0-33.3); Mean Corpuscular Volume 91.4 fL (83.0-100.0); Mean Platelet Volume 13.2 fL (9.4-12.4); Monocytes # 0.9 K/mcL (0.0-1.3); Monocytes % 10.1 %; Neutrophils # 7.2 K/mcL (1.6-8.9); Platelet Count 209 K/mcL (140-400); Red Blood Count 5.26 M/mcL (3.82-4.97); Segmented Neutrophils % 80.1 %
[2018-11-25 09:43] LABS: INR 1.3; Prothrombin Time 14.9 Seconds (9.4-12.1)
[2018-11-25 09:46] LABS: Activated Partial Thrombo Time 37.2 Seconds (26.0-36.0)
[2018-11-25 09:55] LABS: Troponin I < 0.03 ng/mL (< 0.04)
[2018-11-25 10:10] LABS: BUN/Creatinine Ratio 15 (6-26); Blood Urea Nitrogen 9 mg/dL (8-23); Calcium 9.2 mg/dL (8.6-10.3); Carbon Dioxide 31 mEq/L (23-29); Chloride 104 mEq/L (98-107); Digoxin 1.6 ng/mL (0.8-2.0); Glucose 104 mg/dL (70-105); Osmolality,Calculated 293 (280-300); Potassium 3.7 mEq/L (3.5-5.1); Sodium 142 mEq/L (136-145); eGFR For Non-African Americans > 60 (> 60)
[2018-11-25 11:22] LABS: Bilirubin,Urine Negative (Negative); Blood,Urine Small (Negative); Clarity,Urine Clear (Clear); Color,Urine Yellow (Yellow); Glucose,Urine (UA) Normal (Normal); Ketones,Urine 15 mg/dL (Negative); Leukocyte Esterase,Urine Negative (Negative); Nitrite,Urine Negative (Negative); PH,Urine 5.5 pH Units (5.0-8.0); Protein,Urine Trace mg/dL (Neg-Trace); Specific Gravity,Urine >= 1.030 (1.010-1.025); Urobilinogen,Urine Normal (Normal)
[2018-11-25 11:33] LABS: Bacteria,Urine Few per hpf (None-Few); RBC,Urine 0-3 per hpf (0-3); Squamous Epithelial Cell,Urine Few per lpf (None-Few)
[2018-11-25] MEDS ORDERED: Piperacillin/Tazobactam 3.375 GM in 0.9 % Sodium Chloride Mini Bag 100 ML IVPB ONE (12:02)
[2018-11-25] MEDS ORDERED: Doxycycline 100 MG in 0.9 % Sodium Chloride Mini Bag 100 ML IVPB ONE ×2 (12:02→13:48)
[2018-11-25] MEDS ORDERED: Naloxone 0.4 MG/ML INJ IVP PRN (13:48)
[2018-11-25] MEDS ORDERED: 0.9 % Sodium Chloride 1,000 ML IVC SCH (13:48)
[2018-11-25] MEDS: Piperacillin/Tazobactam 3.375 GM in 0.9 % Sodium Chloride Mini Bag 100 ML IVPB SCH (19:47)
[2018-11-25] MEDS: Ondansetron ODT 4 MG TAB.RAPDIS PO SCH (19:50)
[2018-11-25] MEDS: Apixaban 5 MG TABLET PO SCH (19:50)
[2018-11-25] MEDS: ALPRAZolam 0.25 MG TABLET PO SCH (19:50)
[2018-11-26] MEDS ORDERED: Doxycycline 100 MG in 0.9 % Sodium Chloride Mini Bag 100 ML IVPB SCH
[2018-11-26] MEDS: Ondansetron ODT 4 MG TAB.RAPDIS PO SCH ×3 (00:15→12:11)
[2018-11-26] MEDS: Piperacillin/Tazobactam 3.375 GM in 0.9 % Sodium Chloride Mini Bag 100 ML IVPB SCH (04:53)
[2018-11-26] MEDS ORDERED: Ascorbic Acid 500 MG TABLET PO SCH (06:30)
[2018-11-26 07:29] VITALS: BP 99/56
[2018-11-26 08:31] LABS: Basophils # 0.1 K/mcL (0.0-0.2); Basophils % 0.8 %; Eosinophils # 0.1 K/mcL (0.0-0.6); Eosinophils % 1.8 %; Hematocrit 42.6 % (35.3-44.9); Hemoglobin 13.2 g/dL (11.5-15.4); Immature Granulocytes % 0.3 % (0-4); Lymphocytes # 0.9 K/mcL (0.6-4.6); Mean Corpuscular Hemoglobin 29.1 pg (28.0-33.3); Mean Corpuscular Volume 93.8 fL (83.0-100.0); Mean Platelet Volume 13.1 fL (9.4-12.4); Monocytes # 1.1 K/mcL (0.0-1.3); Monocytes % 15.4 %; Neutrophils # 4.9 K/mcL (1.6-8.9); Platelet Count 170 K/mcL (140-400); Red Blood Count 4.54 M/mcL (3.82-4.97); Segmented Neutrophils % 68.7 %
[2018-11-26 08:45] LABS: BUN/Creatinine Ratio 21 (6-26); Blood Urea Nitrogen 11 mg/dL (8-23); Calcium 8.1 mg/dL (8.6-10.3); Carbon Dioxide 30 mEq/L (23-29); Chloride 108 mEq/L (98-107); Glucose 123 mg/dL (70-105); Osmolality,Calculated 297 (280-300); Potassium 3.2 mEq/L (3.5-5.1); Sodium 143 mEq/L (136-145); eGFR For Non-African Americans > 60 (> 60)
[2018-11-26] MEDS ORDERED: *HR* Digoxin 0.25 MG TABLET PO SCH (09:00)
[2018-11-26] MEDS ORDERED: Multivit/Ca/Min/Fe/FA 1 TAB TABLET PO SCH (09:00)
[2018-11-26] MEDS ORDERED: FOS PO SCH (09:00)
[2018-11-26] MEDS ORDERED: Cholecalciferol (D-3) 1,000 UNIT TABLET PO SCH (09:00)
[2018-11-26] MEDS ORDERED: BROMELN PO SCH (09:00)
[2018-11-26] MEDS ORDERED: Cyanocobalamin (B-12) 1,000 MCG TABLET PO SCH (09:00)
[2018-11-26] MEDS ORDERED: [UNRECOGNIZED DRUG - OTHER] PO SCH (09:00)
[2018-11-26] MEDS ORDERED: MANNOSE PO SCH (09:00)
[2018-11-26] MEDS ORDERED: Diltiazem CD (24hr) 120 MG CAPSULE PO SCH (09:00)
[2018-11-26] MEDS ORDERED: CRAN PO SCH (09:00)
[2018-11-26] MEDS ORDERED: VITC PO SCH (09:00)
[2018-11-26] MEDS: Apixaban 5 MG TABLET PO SCH (09:33)
[2018-11-26] MEDS: ALPRAZolam 0.25 MG TABLET PO SCH (09:33)
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
--- NOTE | 2018-11-26 11:07 | Discharge Summary ---
Orders not resulted at time of discharge: Pending orders 11/25/18 09:18 Culture,Blood [BC] Stat Date of Encounter: 11/26/18 Time of Encounter: 10:30 - Discharge Diagnosis (1) Pneumonia Priority: Primary Status: Acute Qualifiers: Pneumonia type: due to unspecified organism Laterality: bilateral Lung location: unspecified part of lung Qualified Code(s): J18.9 - Pneumonia, unspecified organism Hospital course: Ms. Resendez is a 83 year old female who came to emergency room with 2 day history of cough productive of white sputum and occasional chills. There was no vomiting diarrhea fevers or complaints of pain. She was evaluated in emergency room and felt to have pneumonia. She was admitted to [facility] floor for ongoing care needs. Initial orders were written by the emergency room physician. I saw her on November 26 and performed a history and physical. She was started on IV Zosyn and doxycycline. Follow-up labs on November 26 showed WBC 7.1 with resolution of left shift. The temperature had risen to 100.2 the early childhood education coordinator of November 26 however when I saw her she appeared in no acute distress and I felt she could be discharged home and continue antibiotics orally for 5 days as an outpatient. She will follow with her PCP Cornelia Inman CNP within 1 week. Room air oximetry will be checked prior to discharge. - Time Spent with Patient Total time spent providing and/or coordinating discharge services: - Discharge Medications Prescriptions: Amoxicillin/Clavulanate [Augmentin] 875 mg PO BIDWM #10 tablet Doxycycline 100 mg PO BID #10 capsule Lactobacillus [Culturelle] 1 each PO BID #10 cap.sprink Home Medications: Potassium Chloride [Klor-Con 10] 20 meq PO DAILY 01/31/17 [History] Diltiazem CD (24hr) [Cardizem CD] 120 mg PO DAILY #30 cap.er.24h 06/14/17 [Rx] Cyanocobalamin (B-12) [Vitamin B12] 1,000 mcg PO DAILY #30 tablet 07/31/17 [Rx] Cholecalciferol (Vitamin D3) [Vitamin D3] 600 unit PO QAM 10/12/17 [History] Donepezil [Aricept] 5 mg PO HS 10/12/17 [History] Ondansetron [Zofran] 4 mg PO Q6HR 03/12/18 [History] Cran/Vitc/Mannose/Fos/Bromeln [Cystex Cranberry Liquid] 5 ml PO DAILY 04/15/18 [History] Docusate [Colace] 100 mg PO DAILY 04/15/18 [History] Multivitamin [Zoo Chews] 1 tab PO DAILY PRN #0 04/20/18 [Rx] ALPRAZolam [Xanax 0.5 MG Tablet] 0.25 tab PO BID 30 Days #30 04/29/18 [Rx] Ascorbic Acid [Vitamin C] 500 mg PO 0630 #30 tablet 04/29/18 [Rx] Aspirin 81 mg PO Q48H #0 04/29/18 [Rx] Digoxin [Lanoxin] 0.25 mg PO DAILY #30 tablet 04/29/18 [Rx] Ferrous Sulfate 325 mg PO DAILY #30 tablet 04/29/18 [Rx] Omeprazole [PriLOSEC] 20 mg PO DAILY PRN #0 04/29/18 [Rx] Apixaban [Eliquis] 5 mg PO BID #60 tablet 07/30/18 [Rx] Atorvastatin [Lipitor] 10 mg PO HS tablet 07/30/18 [Rx] Amoxicillin/Clavulanate [Augmentin] 875 mg PO BIDWM #10 tablet 11/26/18 [Rx] Doxycycline 100 mg PO BID #10 capsule 11/26/18 [Rx] Lactobacillus [Culturelle] 1 each PO BID #10 cap.sprink 11/26/18 [Rx] Allergies/Adverse Reactions: Allergy/AdvReac Type Severity Reaction Status Date / Time cephalexin [From Keflex] Allergy Hives Verified 04/15/18 08:38 ciprofloxacin [From Cipro] AdvReac Hives Verified 04/15/18 08:38 Date of admission: 11/25/18 12:17 Primary care physician: Mikie Arana MD Consults: 11/25/18 13:48 Consult to Nurse Navigator [CONS] Routine Comment: Consult to Nurse Navigator [CONS] Routine Comment: - Constitutional Vitals: Temp Pulse Resp BP Pulse Ox 100.2 F H 93 16 99/56 91 11/26/18 07:15 11/26/18 07:15 11/26/18 07:15 11/26/18 07:15 11/26/18 07:15 - Patient Status Disposition: Home, Self-Care Condition: Fair - Discharge Instructions Follow Up With: Mikie Arana MD [Primary Care Provider] - 1 week - Diet and Activity Activity: resume usual activities as tolerated Diet: advance to your usual diet
[2018-11-27] MEDS ORDERED: Aspirin 81 MG TAB.CHEW PO SCH (09:00)
--- NOTE | 2018-11-27 16:19 | Electrocardiograph Report ---
[place] [id number] Test Date: 2018-11-25 Pat Name: Felisha Resendez Department: EDP-12 Room: [facility] Gender: F [employer] Associate: : [id number] Requested By: Juliana Marley Order Number: [id number] Reading MD: Chris Saini Measurements Intervals [place] Rate: 76 P: ID: 150 QRS: 71 QRSD: 68 T: 264 QT: 326 QTc: 367 Interpretive Statements Normal sinus rhythm ST-T abnormalities, consider ischemia Electronically Signed On 11-27-2018 16:17:46 EST by Chris Saini
== END 2018-11-26 14:02 | disposition home or self-care (01) ==
LOC: INPPIK 08:28 → EMEROOPIK 08:28 → INPPIK 13:28
PROVIDERS: ADMIT Internal Medicine; ATTEND Internal Medicine

== ENCOUNTER 2018-12-06 15:42 | Observation (INO) ==
[2018-12-06 16:38] LABS: Bilirubin,Urine Negative (Negative); Blood,Urine Large (Negative); Clarity,Urine Cloudy (Clear); Color,Urine Yellow (Yellow); Glucose,Urine (UA) Normal (Normal); Ketones,Urine Negative (Negative); Leukocyte Esterase,Urine Negative (Negative); Nitrite,Urine Negative (Negative); PH,Urine 5.5 pH Units (5.0-8.0); Protein,Urine >=300 mg/dL (Neg-Trace); Specific Gravity,Urine >= 1.030 (1.010-1.025); Urobilinogen,Urine Normal (Normal)
[2018-12-06 16:40] LABS: RBC,Urine TNTC per hpf (0-3)
[2018-12-06 16:41] LABS: Bacteria,Urine Moderate per hpf (None-Few); Squamous Epithelial Cell,Urine Few per lpf (None-Few); WBC,Urine 0-3 per hpf (0-3)
[2018-12-06 16:44] LABS: Yeast,Urine Few per hpf (None Seen)
[2018-12-06 16:48] LABS: Basophils # 0.1 K/mcL (0.0-0.2); Basophils % 0.8 %; Eosinophils # 0.5 K/mcL (0.0-0.6); Eosinophils % 4.7 %; Hematocrit 44.1 % (35.3-44.9); Hemoglobin 14.3 g/dL (11.5-15.4); Immature Granulocytes % 0.3 % (0-4); Lymphocytes # 2.1 K/mcL (0.6-4.6); Lymphocytes % 19.5 %; Mean Corpuscular HGB Conc 32.4 g/dL (31.6-35.5); Mean Corpuscular Hemoglobin 29.5 pg (28.0-33.3); Mean Corpuscular Volume 91.1 fL (83.0-100.0); Mean Platelet Volume 12.6 fL (9.4-12.4); Monocytes # 0.8 K/mcL (0.0-1.3); Monocytes % 7.7 %; Neutrophils # 7.1 K/mcL (1.6-8.9); Platelet Count 253 K/mcL (140-400); Red Blood Count 4.84 M/mcL (3.82-4.97); Red Cell Distribution Width 14.9 % (11.5-14.5)
[2018-12-06 16:56] LABS: INR 1.5; Prothrombin Time 16.8 Seconds (9.4-12.1)
[2018-12-06 17:04] LABS: Alanine Aminotransferase 7 Units/L (7-52); Albumin/Globulin Ratio 0.9 (1.1-2.2); Alkaline Phosphatase 74 Units/L (34-104); Aspartate Amino Transferase 10 Units/L (13-39); BUN/Creatinine Ratio 19 (6-26); Bilirubin,Direct 0.1 mg/dL (0.0-0.2); Bilirubin,Indirect 0.3 mg/dL (0.0-1.2); Bilirubin,Total 0.4 mg/dL (0.3-1.0); Blood Urea Nitrogen 10 mg/dL (8-23); Calcium 9.1 mg/dL (8.6-10.3); Carbon Dioxide 30 mEq/L (23-29); Chloride 109 mEq/L (98-107); Globulin 3.3 g/dL (2.4-3.5); Glucose 105 mg/dL (70-105); Osmolality,Calculated 299 (280-300); Potassium 3.9 mEq/L (3.5-5.1); Sodium 145 mEq/L (136-145); Total Protein 6.3 g/dL (6.4-8.9); eGFR For Non-African Americans > 60 (> 60)
[2018-12-06 17:08] LABS: Troponin I < 0.03 ng/mL (< 0.04)
--- NOTE | 2018-12-06 18:31 | Emergency Department Note ---
Disposition Clinical Impression: Generalized weakness, Unable to ambulate Disposition: Admitted As Inpatient Condition: Fair Referrals: Mikie Arana MD [Primary Care Provider] - Time of Disposition: 18:37 Weakness HPI - General Chief complaint: ED Weakness Stated complaint: gen weakness Time Seen by Provider: 12/06/18 15:49 Source: patient, family, EMS Mode of arrival: EMS Limitations: physical limitation Nursing Notes Reviewed: Yes Vital Signs Reviewed: Yes - History of Present Illness Pt Subjective Complaint: generalized weakness/fatigue Onset (ago): week(s) (Progressively worsening for a week) Duration: constant, gradually worsening Location: generalized Pain Severity: none Pain Scale: 0 Improves with: none Worsens with: exertion Context: recent illness (Patient is recovering from a recent admission for pneumonia. She had been doing okay when she the hospital but then started going downhill.) Associated symptoms: Reports: other (Family members felt that there was some drooping of the left side of the face and a little bit of drooling that they noticed about 3 days ago. She is also had some edema to her left hand which did noticed a couple of days ago as well.) - Related Data Home Medications Medication Instructions Recorded Confirmed Potassium Chloride [Klor-Con 10] 20 meq PO DAILY 01/31/17 12/06/18 Cholecalciferol (Vitamin D3) 600 unit PO QAM 10/12/17 12/06/18 [Vitamin D3] Donepezil [Aricept] 5 mg PO HS 10/12/17 12/06/18 Ondansetron [Zofran] 4 mg PO Q6HR 03/12/18 12/06/18 Cran/Vitc/Mannose/Fos/Bromeln 5 ml PO DAILY 04/15/18 12/06/18 [Cystex Cranberry Liquid] Docusate [Colace] 100 mg PO DAILY 04/15/18 12/06/18 Previous Rx's Medication Instructions Recorded Diltiazem CD (24hr) [Cardizem CD] 120 mg PO DAILY #30 cap.er.24h 06/14/17 Cyanocobalamin (B-12) [Vitamin B12] 1,000 mcg PO DAILY #30 tablet 07/31/17 Multivitamin [Zoo Chews] 1 tab PO DAILY PRN #0 04/20/18 ALPRAZolam [Xanax 0.5 MG Tablet] 0.25 tab PO BID 30 Days #30 04/29/18 Ascorbic Acid [Vitamin C] 500 mg PO 0630 #30 tablet 04/29/18 Aspirin 81 mg PO Q48H #0 04/29/18 Digoxin [Lanoxin] 0.25 mg PO DAILY #30 tablet 04/29/18 Ferrous Sulfate 325 mg PO DAILY #30 tablet 04/29/18 Omeprazole [PriLOSEC] 20 mg PO DAILY PRN #0 04/29/18 Apixaban [Eliquis] 5 mg PO BID #60 tablet 07/30/18 Atorvastatin [Lipitor] 10 mg PO HS tablet 07/30/18 Lactobacillus [Culturelle] 1 each PO BID #10 cap.sprink 11/26/18 Allergies Allergy/AdvReac Type Severity Reaction Status Date / Time cephalexin [From Keflex] Allergy Hives Verified 04/15/18 08:38 ciprofloxacin [From Cipro] AdvReac Hives Verified 04/15/18 08:38 All systems ED: reviewed and negative except as stated. Constitutional: Denies: fever, chills Eyes: Denies: vision change ENT ED: Denies: ear pain, throat pain, congestion Cardiovascular: Denies: chest pain, palpitations Respiratory: Denies: cough, dyspnea Gastrointestinal: Denies: abdominal pain, nausea, vomiting Musculoskeletal: Denies: back pain Integumentary: Denies: rash Neurological: Denies: headache Past Medical History - Past Medical History Attestation: Yes The following information was validated with the patient. Source: patient, old records reviewed, obtained from family, nursing notes reviewed Medical history: Reports: atrial fibrillation, cancer, CVA, dementia, hypertension, kidney stones Surgical history: Reports: breast surgery, cancer surgery, colectomy, orthopedic, other, ureteral stent Psychiatric history: Reports: no psych history MANAGER IMAGING history: Reports: no MANAGER IMAGING history - Social History Smoking Status: Former smoker Smokeless Tobacco Status: No Alcohol use: Reports: none Drug use: Reports: none Physical Exam - General Limitations: physical limitation General appearance: alert, in no apparent distress - Head Head exam: atraumatic, normocephalic, normal inspection - Eye Eye exam: Present: normal appearance, PERRL, EOMI. Absent: scleral icterus, conjunctival injection, periorbital swelling - ENT ENT exam: normal exam, normal oropharynx, mucous membranes moist, TM's normal bilaterally, normal external ear exam - Neck Neck exam: Present: normal inspection, full ROM, trachea midline. Absent: meningismus, lymphadenopathy - Chest Chest inspection: Present: normal inspection, symmetric chest wall rise. Absent: tenderness - Respiratory Respiratory exam: Present: normal lung sounds bilaterally. Absent: respiratory distress, wheezes - Cardiovascular Cardiovascular exam: Present: regular rate, normal rhythm, normal heart sounds - Abdominal Exam Abdominal exam: Present: soft, Non-Tender, normal bowel sounds - Extremities Exam Extremities exam: Present: normal inspection, other (There is little bit of edema to the left hand that does not extend beyond the wrist). Absent: tenderness, pedal edema, joint swelling - Neurological Exam Neurological exam: Present: alert, oriented X3, CN II-XII intact, normal gait (I t takes to be believe the patient up on her feet to try to walk her.). Absent: motor sensory deficit (The motor and sensory examination while the patient is lying in the bed is normal.) - Psychiatric Psychiatric exam: Present: normal affect, normal mood - Skin Skin exam: Present: warm, dry. Absent: rash Course Course Narrative: Patient presents with generalized weakness that seems to be worsening over the past several days. Family is noticed maybe some left facial droop about 3 days ago. The patient herself just complains of the weakness but does not have any focal plaints otherwise. On examination I am not finding anything focal. I do see a little bit of droop in the corner of the mouth at times but she can smile and raise that mouth of just fine. She can open and close her eyes without a problem. The motor and sensory examination well the patient is laying in the bed is no problem. She just does not have the strength to hold herself up when she tries to stand up. No focal findings on physical examination. I am going to do a workup on the patient. - Reevaluation(s) Reevaluation #1: Labs come back and do not really show me anything. She has some blood in her urine and some bacteria but no white cells or nitrates. The rest of the workup really show anything acute. However the patient cannot get up by herself from the bed. Thus she cannot go home. Still do not find indications of focal neurologic deficit that would make me think of a stroke. CT scan did not show anything. I discussed case with the hospitalist and he accepted her for admission. Time: 18:34 - Consultations Consultation #1: Dr. Sotelo, hospitalist - I discussed the case with the hospitalist and he accepted the patient for admission. Time: 18:34 Vital Signs Temperature 99 F 12/06/18 15:50 Pulse Rate 62 12/06/18 15:50 Respiratory Rate 18 12/06/18 15:50 Blood Pressure 99/54 12/06/18 15:50 O2 Sat by Pulse Oximetry 95 12/06/18 15:50 Temperature 99 F 12/06/18 15:50 Pulse Rate 58 12/06/18 18:20 Respiratory Rate 16 12/06/18 18:20 Blood Pressure 117/51 12/06/18 18:20 O2 Sat by Pulse Oximetry 93 12/06/18 18:20 Oxygen Delivery Oxygen Delivery Room Air Weakness - Medical Records Medical records reviewed: Yes I reviewed the patient's medical records. - Lab Data Lab results reviewed: Yes I reviewed the patient's lab results. Result diagrams: 12/06/18 16:38 12/06/18 16:38 Lab Results 12/06/18 12/06/18 12/06/18 Range/Units 16:27 16:38 16:38 WBC 10.6 (4.3-11.1) K/mcL RBC 4.84 (3.82-4.97) M/mcL Hgb 14.3 (11.5-15.4) g/dL Hct 44.1 (35.3-44.9) % MCV 91.1 (83.0-100.0) fL MCH 29.5 (28.0-33.3) pg MCHC 32.4 (31.6-35.5) g/dL RDW 14.9 H (11.5-14.5) % Plt Count 253 (140-400) K/mcL MPV 12.6 H (9.4-12.4) fL Immature Gran % 0.3 (0-4) % Seg Neutrophils % 67.0 % Lymphocytes % 19.5 % Monocytes % 7.7 % Eosinophils % 4.7 % Basophils % 0.8 % Neutrophils # 7.1 (1.6-8.9) K/mcL Lymphocytes # 2.1 (0.6-4.6) K/mcL Monocytes # 0.8 (0.0-1.3) K/mcL Eosinophils # 0.5 (0.0-0.6) K/mcL Basophils # 0.1 (0.0-0.2) K/mcL PT 16.8 H (9.4-12.1) Seconds INR 1.5 APTT (26.0-36.0) Seconds Sodium (136-145) mEq/L Potassium (3.5-5.1) mEq/L Chloride (98-107) mEq/L Carbon Dioxide (23-29) mEq/L BUN (8-23) mg/dL Creatinine (0.60-1.20) mg/dL Est GFR ( Amer) (> 60) Est GFR (Non-Af Amer) (> 60) BUN/Creatinine Ratio (6-26) Glucose (70-105) mg/dL Calculated Osmolality (280-300) Lactic Acid (0.5-2.2) mmol/L Calcium (8.6-10.3) mg/dL Total Bilirubin (0.3-1.0) mg/dL Direct Bilirubin (0.0-0.2) mg/dL Indirect Bilirubin (0.0-1.2) mg/dL AST (13-39) Units/L ALT (7-52) Units/L Alkaline Phosphatase (34-104) Units/L Troponin I (< 0.04) ng/mL B-Natriuretic Peptide (Less than 100) pg/mL Serum Total Protein (6.4-8.9) g/dL Albumin (3.5-5.7) g/dL Globulin (2.4-3.5) g/dL Albumin/Globulin Ratio (1.1-2.2) Ur Specimen Adequacy See below A Urine Color Yellow (Yellow) Urine Clarity Cloudy A (Clear) Urine pH 5.5 (5.0-8.0) pH Units Ur Specific [place] >= 1.030 H (1.010-1.025) Urine Protein >=300 H (Neg-Trace) mg/dL Urine Glucose (UA) Normal (Normal) mg/dL Urine Ketones Negative (Negative) mg/dL Urine Blood Large H (Negative) Urine Nitrite Negative (Negative) Urine Bilirubin Negative (Negative) Urine Urobilinogen Normal (Normal) mg/dL Ur Leukocyte Esterase Negative (Negative) Urine Microscopic RBC TNTC H (0-3) per hpf Urine Microscopic WBC 0-3 (0-3) per hpf Ur Squamous Epith Cells Few (None-Few) per lpf Urine Bacteria Moderate H (None-Few) per hpf Urine Yeast Few H (None Seen) per hpf Ur Culture Indicated? NO (NO) 12/06/18 12/06/18 12/06/18 Range/Units 16:38 16:38 16:38 WBC (4.3-11.1) K/mcL RBC (3.82-4.97) M/mcL Hgb (11.5-15.4) g/dL Hct (35.3-44.9) % MCV (83.0-100.0) fL MCH (28.0-33.3) pg MCHC (31.6-35.5) g/dL RDW (11.5-14.5) % Plt Count (140-400) K/mcL MPV (9.4-12.4) fL Immature Gran % (0-4) % Seg Neutrophils % % Lymphocytes % % Monocytes % % Eosinophils % % Basophils % % Neutrophils # (1.6-8.9) K/mcL Lymphocytes # (0.6-4.6) K/mcL Monocytes # (0.0-1.3) K/mcL Eosinophils # (0.0-0.6) K/mcL Basophils # (0.0-0.2) K/mcL PT (9.4-12.1) Seconds INR APTT (26.0-36.0) Seconds Sodium 145 (136-145) mEq/L Potassium 3.9 (3.5-5.1) mEq/L Chloride 109 H (98-107) mEq/L Carbon Dioxide 30 H (23-29) mEq/L BUN 10 (8-23) mg/dL Creatinine 0.53 L (0.60-1.20) mg/dL Est GFR ( Amer) > 60 (> 60) Est GFR (Non-Af Amer) > 60 (> 60) BUN/Creatinine Ratio 19 (6-26) Glucose 105 (70-105) mg/dL Calculated Osmolality 299 (280-300) Lactic Acid 0.6 (0.5-2.2) mmol/L Calcium 9.1 (8.6-10.3) mg/dL Total Bilirubin 0.4 (0.3-1.0) mg/dL Direct Bilirubin 0.1 (0.0-0.2) mg/dL Indirect Bilirubin 0.3 (0.0-1.2) mg/dL AST 10 L (13-39) Units/L ALT 7 (7-52) Units/L Alkaline Phosphatase 74 (34-104) Units/L Troponin I < 0.03 (< 0.04) ng/mL B-Natriuretic Peptide 66 (Less than 100) pg/mL Serum Total Protein 6.3 L (6.4-8.9) g/dL Albumin 3.0 L (3.5-5.7) g/dL Globulin 3.3 (2.4-3.5) g/dL Albumin/Globulin Ratio 0.9 L (1.1-2.2) Ur Specimen Adequacy Urine Color (Yellow) Urine Clarity (Clear) Urine pH (5.0-8.0) pH Units Ur Specific [place] (1.010-1.025) Urine Protein (Neg-Trace) mg/dL Urine Glucose (UA) (Normal) mg/dL Urine Ketones (Negative) mg/dL Urine Blood (Negative) Urine Nitrite (Negative) Urine Bilirubin (Negative) Urine Urobilinogen (Normal) mg/dL Ur Leukocyte Esterase (Negative) Urine Microscopic RBC (0-3) per hpf Urine Microscopic WBC (0-3) per hpf Ur Squamous Epith Cells (None-Few) per lpf Urine Bacteria (None-Few) per hpf Urine Yeast (None Seen) per hpf Ur Culture Indicated? (NO) 12/06/18 Range/Units 16:38 WBC (4.3-11.1) K/mcL RBC (3.82-4.97) M/mcL Hgb (11.5-15.4) g/dL Hct (35.3-44.9) % MCV (83.0-100.0) fL MCH (28.0-33.3) pg MCHC (31.6-35.5) g/dL RDW (11.5-14.5) % Plt Count (140-400) K/mcL MPV (9.4-12.4) fL Immature Gran % (0-4) % Seg Neutrophils % % Lymphocytes % % Monocytes % % Eosinophils % % Basophils % % Neutrophils # (1.6-8.9) K/mcL Lymphocytes # (0.6-4.6) K/mcL Monocytes # (0.0-1.3) K/mcL Eosinophils # (0.0-0.6) K/mcL Basophils # (0.0-0.2) K/mcL PT (9.4-12.1) Seconds INR APTT 34.8 (26.0-36.0) Seconds Sodium (136-145) mEq/L Potassium (3.5-5.1) mEq/L Chloride (98-107) mEq/L Carbon Dioxide (23-29) mEq/L BUN (8-23) mg/dL Creatinine (0.60-1.20) mg/dL Est GFR ( Amer) (> 60) Est GFR (Non-Af Amer) (> 60) BUN/Creatinine Ratio (6-26) Glucose (70-105) mg/dL Calculated Osmolality (280-300) Lactic Acid (0.5-2.2) mmol/L Calcium (8.6-10.3) mg/dL Total Bilirubin (0.3-1.0) mg/dL Direct Bilirubin (0.0-0.2) mg/dL Indirect Bilirubin (0.0-1.2) mg/dL AST (13-39) Units/L ALT (7-52) Units/L Alkaline Phosphatase (34-104) Units/L Troponin I (< 0.04) ng/mL B-Natriuretic Peptide (Less than 100) pg/mL Serum Total Protein (6.4-8.9) g/dL Albumin (3.5-5.7) g/dL Globulin (2.4-3.5) g/dL Albumin/Globulin Ratio (1.1-2.2) Ur Specimen Adequacy Urine Color (Yellow) Urine Clarity (Clear) Urine pH (5.0-8.0) pH Units Ur Specific [place] (1.010-1.025) Urine Protein (Neg-Trace) mg/dL Urine Glucose (UA) (Normal) mg/dL Urine Ketones (Negative) mg/dL Urine Blood (Negative) Urine Nitrite (Negative) Urine Bilirubin (Negative) Urine Urobilinogen (Normal) mg/dL Ur Leukocyte Esterase (Negative) Urine Microscopic RBC (0-3) per hpf Urine Microscopic WBC (0-3) per hpf Ur Squamous Epith Cells (None-Few) per lpf Urine Bacteria (None-Few) per hpf Urine Yeast (None Seen) per hpf Ur Culture Indicated? (NO) - Radiology Data Radiology results reviewed: Yes I reviewed the patient's radiology results. - EKG Data EKG attestation: Yes I reviewed and interpreted this EKG. EKG results narrative: Twelve-lead EKG performed at 1540 6 PM shows sinus rhythm at a rate of 60. Normal axis. Good hour progression across corneum. Nonspecific ST/T-wave abnormalities in the lateral and inferior leads but these were all seen on previous EKGs.
[2018-12-06] MEDS ORDERED: Naloxone 0.4 MG/ML INJ IVP PRN (18:46)
[2018-12-06] MEDS ORDERED: Aspirin 81 MG TAB.CHEW PO SCH (21:00)
[2018-12-06] MEDS: Apixaban 5 MG TABLET PO SCH (21:26)
[2018-12-06] MEDS: 0.9 % Sodium Chloride 1,000 ML IVC SCH (21:27)
[2018-12-07] MEDS: Ondansetron ODT 4 MG TAB.RAPDIS PO SCH ×2 (00:30→06:18)
[2018-12-07] MEDS: 0.9 % Sodium Chloride 1,000 ML IVC SCH (06:18)
[2018-12-07 06:25] VITALS: BP 123/71
--- NOTE | 2018-12-07 06:44 | Electrocardiograph Report ---
[place] [id number] Test Date: 2018-12-06 Pat Name: Felisha Resendez Department: EDP-15 Room: [facility] Gender: F [employer] Operator: : 1935 Requested By: Bernardo Escobar Order Number: [id number] Reading MD: Epifanio Thurman Measurements Intervals [place] Rate: 60 P: 0 [place]: 55 QRS: 82 QRSD: 79 T: -90 QT: 371 QTc: 371 Interpretive Statements Sinus rhythm Diffuse ST-T changes, consider inferior and anterolateral ST-T changes Electronically Signed On 12-07-2018 6:42:39 EST by Epifanio Thurman
[2018-12-07] MEDS ORDERED: Diltiazem CD (24hr) 120 MG CAPSULE PO SCH (09:00)
[2018-12-07] MEDS ORDERED: *HR* Digoxin 0.25 MG TABLET PO SCH (09:00)
[2018-12-07] MEDS: Apixaban 5 MG TABLET PO SCH (09:17)
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
--- NOTE | 2018-12-07 15:21 | Discharge Summary ---
Orders not resulted at time of discharge: Pending orders 12/06/18 16:51 Culture,Blood [BC] Stat Date of Encounter: 12/07/18 Time of Encounter: 14:30 - Discharge Diagnosis (1) CVA (cerebral vascular accident) Priority: Primary Status: Acute Qualifiers: CVA mechanism: unspecified Qualified Code(s): I63.9 - Cerebral infarction, unspecified (2) Hematuria Priority: Secondary Status: Acute Qualifiers: Hematuria type: unspecified type Qualified Code(s): R31.9 - Hematuria, unspecified (3) Hypertension Priority: Secondary Status: Chronic Qualifiers: Hypertension type: essential hypertension Qualified Code(s): I10 - Essential (primary) hypertension (4) Paroxysmal atrial fibrillation Priority: Secondary Status: Chronic Hospital course: Ms. Resendez is a 83 year old female who was brought to emergency room after caretakers noted onset of weakness in the left face and left hand 12/04/2018. When symptoms did not improve she was brought to emergency room and evaluated and admitted to [facility] floor for ongoing care needs. Initial orders were written by the emergency room physician. I saw her on December 07 and performed a history physical and discharge. When I saw her there was slight weakness of her left face and left arm duration unknown. Review of hospital stay approximately 10 days earlier did not document these to be present. She is taking aspirin and Eliquis already. She is not a candidate for further aggressive workup or intervention. She has had multiple previous documented strokes. She will be discharged home and follow with her PCP Cornelai Inman CNP within 1 week. - Time Spent with Patient Total time spent providing and/or coordinating discharge services: - Discharge Medications Prescriptions: Continue Diltiazem CD (24hr) [Cardizem CD] 120 mg PO DAILY #30 cap.er.24h Potassium Chloride [Klor-Con 10] 20 meq PO DAILY Cyanocobalamin (B-12) [Vitamin B12] 1,000 mcg PO DAILY #30 tablet Donepezil [Aricept] 5 mg PO HS Cholecalciferol (Vitamin D3) [Vitamin D3] 600 unit PO QAM Ondansetron [Zofran] 4 mg PO Q6HR Cran/Vitc/Mannose/Fos/Bromeln [Cystex Cranberry Liquid] 5 ml PO DAILY Docusate [Colace] 100 mg PO DAILY Multivitamin [Zoo Chews] 1 tab PO DAILY PRN #0 PRN Reason: Dyspepsia ALPRAZolam [Xanax 0.5 MG Tablet] 0.25 tab PO BID 30 Days #30 Ascorbic Acid [Vitamin C] 500 mg PO 0630 #30 tablet Aspirin 81 mg PO Q48H #0 Digoxin [Lanoxin] 0.25 mg PO DAILY #30 tablet Ferrous Sulfate 325 mg PO DAILY #30 tablet Omeprazole [PriLOSEC] 20 mg PO DAILY PRN #0 PRN Reason: Dyspepsia Apixaban [Eliquis] 5 mg PO BID #60 tablet Atorvastatin [Lipitor] 10 mg PO HS tablet Lactobacillus [Culturelle] 1 each PO BID #10 cap.sprink Home Medications: Potassium Chloride [Klor-Con 10] 20 meq PO DAILY 01/31/17 [History] Diltiazem CD (24hr) [Cardizem CD] 120 mg PO DAILY #30 cap.er.24h 06/14/17 [Rx] Cyanocobalamin (B-12) [Vitamin B12] 1,000 mcg PO DAILY #30 tablet 07/31/17 [Rx] Cholecalciferol (Vitamin D3) [Vitamin D3] 600 unit PO QAM 10/12/17 [History] Donepezil [Aricept] 5 mg PO HS 10/12/17 [History] Ondansetron [Zofran] 4 mg PO Q6HR 03/12/18 [History] Cran/Vitc/Mannose/Fos/Bromeln [Cystex Cranberry Liquid] 5 ml PO DAILY 04/15/18 [History] Docusate [Colace] 100 mg PO DAILY 04/15/18 [History] Multivitamin [Zoo Chews] 1 tab PO DAILY PRN #0 04/20/18 [Rx] ALPRAZolam [Xanax 0.5 MG Tablet] 0.25 tab PO BID 30 Days #30 04/29/18 [Rx] Ascorbic Acid [Vitamin C] 500 mg PO 0630 #30 tablet 04/29/18 [Rx] Aspirin 81 mg PO Q48H #0 04/29/18 [Rx] Digoxin [Lanoxin] 0.25 mg PO DAILY #30 tablet 04/29/18 [Rx] Ferrous Sulfate 325 mg PO DAILY #30 tablet 04/29/18 [Rx] Omeprazole [PriLOSEC] 20 mg PO DAILY PRN #0 04/29/18 [Rx] Apixaban [Eliquis] 5 mg PO BID #60 tablet 07/30/18 [Rx] Atorvastatin [Lipitor] 10 mg PO HS tablet 07/30/18 [Rx] Lactobacillus [Culturelle] 1 each PO BID #10 cap.sprink 11/26/18 [Rx] Allergies/Adverse Reactions: Allergy/AdvReac Type Severity Reaction Status Date / Time cephalexin [From Keflex] Allergy Hives Verified 04/15/18 08:38 ciprofloxacin [From Cipro] AdvReac Hives Verified 04/15/18 08:38 Date of admission: 12/06/18 18:45 Primary care physician: Mikie Arana MD - Constitutional Vitals: Temp Pulse Resp BP Pulse Ox 97.6 F 64 15 123/71 90 12/07/18 06:17 12/07/18 06:17 12/07/18 06:17 12/07/18 06:17 12/07/18 06:17 - Patient Status Disposition: Home, Self-Care Condition: Fair - Discharge Instructions Follow Up With: Mikie Arana MD [Primary Care Provider] - 1 week - Diet and Activity Activity: resume usual activities as tolerated Diet: advance to your usual diet - VTE Documentation of Mechanical Device: Graduated compression elastic hosiery
== END 2018-12-07 17:35 | disposition home or self-care (01) ==
LOC: INPPIK 15:42 → EMEROOPIK 15:42 → INPPIK 19:32
PROVIDERS: ADMIT Internal Medicine; ATTEND Internal Medicine